=== PATIENT | female | born 1955 | race Caucasian/White ===

== ENCOUNTER 2020-01-06 18:26 | Emergency (ER) | payer BC, OTHER ==
[~2020-01-06] VITALS: Ht 160 cm; Wt 91.0 kg
[2020-01-06] MEDS ORDERED: NS IV 1000 ML 1,000 ML IV ONE ×2 (18:35→20:29)
[2020-01-06 18:45] LABS: BASOPHILS % (AUTO) 0 % (0-10); EOSINOPHILS % (AUTO) 0 % (0-10); HEMATOCRIT 39 % (35-52); HEMOGLOBIN 13.5 G/DL (11.5-16.0); LYMPHOCYTES # (AUTO) 0.7 X 10^3 (1.0-4.0); LYMPHOCYTES % (AUTO) 12 % (12-44); MEAN CORPUSCULAR HEMOGLOBIN 35 PG (25-34); MEAN CORPUSCULAR HGB CONC 35 G/DL (32-36); MEAN CORPUSCULAR VOLUME 101 FL (80-99); MEAN PLATELET VOLUME 11.1 FL (7.4-10.4); MONOCYTES # (AUTO) 0.2 X 10^3 (0.0-1.0); MONOCYTES % (AUTO) 4 % (0-12); NEUTROPHILS # (AUTO) 4.8 X 10^3 (1.8-7.8); NEUTROPHILS % (AUTO) 84 % (42-75); PLATELET COUNT 95 10^3/uL (130-400); RED CELL DISTRIBUTION WIDTH 13.5 % (10.0-14.5); WHITE BLOOD COUNT 5.7 10^3/uL (4.3-11.0)
--- NOTE | 2020-01-06 18:46 | NUR ---
NOT AT BEDSIDE PATIENT GIVES POOR HX.
[2020-01-06 18:51] LABS: INR 1.6 (0.8-1.4); PROTHROMBIN TIME PATIENT 20.1 SEC (12.2-14.7)
[2020-01-06] MEDS ORDERED: LOSA50TA63 (18:51)
[2020-01-06] MEDS ORDERED: SUMA100T3 (18:51)
[2020-01-06] MEDS ORDERED: FLUT16SP22 (18:51)
[2020-01-06] MEDS ORDERED: SERT50TA9 (18:51)
[2020-01-06] MEDS ORDERED: NADO40TA (18:51)
[2020-01-06] MEDS ORDERED: SERT25TA5 (18:51)
[2020-01-06] MEDS ORDERED: OMEP-280 (18:51)
[2020-01-06] MEDS ORDERED: ATOR20TA66 (18:51)
[2020-01-06 19:00] LABS: ALANINE AMINOTRANSFERASE 28 U/L (0-55); ALBUMIN 2.2 GM/DL (3.2-4.5); ALKALINE PHOSPHATASE 133 U/L (40-136); BILIRUBIN,TOTAL 1.6 MG/DL (0.1-1.0); BUN/CREATININE RATIO 14; CALCIUM 8.1 MG/DL (8.5-10.1); GLUCOSE 127 MG/DL (70-105); TOTAL PROTEIN 7.7 GM/DL (6.4-8.2)
--- NOTE | 2020-01-06 19:01 | Diagnostic Imaging Report ---
INDICATION: Fall with confusion and headache. TECHNIQUE: Multiple contiguous axial images were obtained through the brain and cervical spine without the use of intravenous contrast. Sagittal and coronal reformations through the cervical spine were then performed. Auto Exposure Controls were utilized during the CT exam to meet ALARA standards for radiation dose reduction. There is no prior study for comparison. FINDINGS: There were no extra-axial fluid collections. No intracranial hemorrhage. No intracranial mass or mass effect. No midline shift. The ventricles are normal in size and position. There were no focal parenchymal abnormalities in the brain. Calvarial windows show no fracture. There is opacification of the frontal sinuses, partial opacification of the ethmoid air cells, and extensive opacification of mucosal thickening of the maxillary sinuses. There is a small amount fluid in the right sphenoid sinus. CT cervical spine findings: There was no evidence of cervical spine fracture. There is mild anterolisthesis of C3 on C4 by about 2 mm. There is mild anterolisthesis of C4 on C5 by about 2 mm. There is also mild anterolisthesis of C5 on C6 by about 2 mm. There is disc space narrowing at C6-C7 with osteophyte formation. There is diffuse facet degenerative change throughout the cervical levels. IMPRESSION: CT brain shows no acute intracranial abnormality. There is diffuse sinus disease as described above. CT cervical spine shows no acute fracture. There are multilevel listheses as mentioned above which may be on degenerative basis, correlate with clinical findings. There is disc space narrowing at C6-C7 with osteophyte formation. There is diffuse facet degenerative change. Dictated by: Dictated on workstation # [id number]
--- NOTE | 2020-01-06 19:10 | Diagnostic Imaging Report ---
INDICATION: Fall with pelvic pain AP pelvis obtained at 0705 p.m. No fracture or acute bony abnormality is seen. There is mild degenerative change of both hips. The SI joints show mild degenerative change as well. There is no acute appearing finding. IMPRESSION: Mild chronic changes with no acute abnormality in the pelvis. Dictated by: Dictated on workstation # [id number]
--- NOTE | 2020-01-06 19:10 | Diagnostic Imaging Report ---
INDICATION: Fall with confusion Frontal chest obtained at 0704 p.m. There is no prior study for comparison. There is cardiomegaly. There is relatively poor inspiration. There is no focal infiltrate or pneumothorax or pleural fluid. IMPRESSION: Cardiomegaly and poor inspiration. No focal infiltrate. Dictated by: Dictated on workstation # [id number]
[2020-01-06 19:11] LABS: AMMONIA 50 UMOL/L (11-32); CHLORIDE 106 MMOL/L (98-107); POTASSIUM 3.7 MMOL/L (3.6-5.0); SODIUM 133 MMOL/L (135-145)
[2020-01-06 19:13] LABS: CARBON DIOXIDE 11 MMOL/L (21-32); CREATININE SERUM 3.95 MG/DL (0.60-1.30); GFR ESTIMATED 11
--- NOTE | 2020-01-06 19:15 | ED General ---
General Chief Complaint: Neurological Problems Stated Complaint: FALL Nursing Triage Note: PT TO [facility] BY [facility] WITH CC OF BEING FOUND DOWN ON THE FLOOR, CONFUSED, LAST KNOWN WELL WAS YESTERDAY. Nursing Sepsis Screen: Possible Severe Sepsis Risk Source of Information: Patient, EMS, Family Exam Limitations: No Limitations History of Present Illness Date Seen by Provider: Jan 06, 2020 Time Seen by Provider: 18:28 Initial Comments This 64-year-old woman presents to the emergency room via EMS after being found on the floor by her family. There is no evidence of trauma patient denies any pain at this time. She does not recall exactly what happened. She was last see n by her around 07:00. He reports she was weak and had been struggling with diarrhea for about 2 days. He had been attempting to orally hydrate her with clear liquids. She has a history of liver failure from fatty liver disease and has esophageal varices monitored by Dr. Ventura at [place]. She is afebrile at this time. Patient is conversational and answers most questions appropriately but she is disoriented to her age and the present month. She was scheduled to have surveillance endoscopy performed tomorrow. Allergies and Home Medications Allergies Coded Allergies: No Known Drug Allergies (Unverified , 01/06/20) Patient Home Medication List Home Medication List Reviewed: Yes Review of Systems Review of Systems Constitutional: see HPI EENTM: no symptoms reported Respiratory: no symptoms reported Cardiovascular: no symptoms reported Gastrointestinal: see HPI; No abdominal pain Genitourinary: no symptoms reported Musculoskeletal: no symptoms reported Skin: no symptoms reported Psychiatric/Neurological: See HPI Hematologic/Lymphatic: No Symptoms Reported Immunological/Allergic: no symptoms reported Past Ccrusqq-Fzlvuy-Tvpgcy Hx Past Med/Social Hx: Reviewed and Corrections made Patient Social History Alcohol Use: Denies Use Recreational Drug Use: No Smoking Status: Never a Smoker Recent Foreign Travel: No Contact w/Someone Who Travel: No Recent Infectious Disease Expo: No Past Medical History Surgeries: Yes (esophageal banding) Gallbladder, Hysterectomy Cardiac: Yes Hypertension Genitourinary: No Gastrointestinal: Yes Liver Disease/Jaundice, Esophageal Varices Musculoskeletal: No Endocrine: No Cancer: No Psychosocial: Yes Anxiety, Depression Physical Exam-Suspected Sepsis Physical Exam Vital Signs Vital Signs - First Documented 01/06/20 01/06/20 18:27 21:55 Temp 37.1 Pulse 109 Resp 20 B/P (MAP) 142/99 (113) Pulse Ox 94 O2 Delivery Room Air Capillary Refill : Less Than 3 Seconds Blood Pressure Mean: 113 Height, Weight, BMI Height: '" Weight: lbs. oz. kg; 35.00 BMI Method: General Appearance: No Apparent Distress, WD/WN HEENT: PERRL/EOMI, Normal ENT Inspection, Other (mucous membranes somewhat dry) Neck: Normal Inspection, Non Tender Respiratory: Lungs Clear, Normal Breath Sounds, No Accessory Muscle Use, No Respiratory Distress Cardiovascular: Regular Rate, Rhythm, No Edema, No Murmur, Normal Peripheral Pulses Gastrointestinal: Normal Bowel Sounds, Non Tender, Soft Extremity: Normal Inspection, No Pedal Edema, Other (no hip pain or tenderness) Neurologic/Psychiatric: Alert, No Motor/Sensory Deficits, Normal Mood/Affect, claim adjuster II-XII Norm as Tested, Other (mild to moderate generalized weakness with no focal deficits. Patient disoriented to age, year and month. She is otherwise conversational.) Skin: normal color, warm/dry Focused Exam Lactate Level 01/06/20 18:30: Lactic Acid Level 4.85*H 01/06/20 20:19: Lactic Acid Level 4.67*H Lactic Acid Level Progress/Results/Core Measures Suspected Sepsis Recent Fever Within 48 Hours: Yes Infection Criteria Present: Suspected New Infection New/Unexplained Altered Menta: Yes Sepsis Screen: Possible Severe Sepsis Risk SIRS Temperature: Pulse: 109 Respiratory Rate: Laboratory Tests 01/06/20 18:30: White Blood Count 5.7 Blood Pressure 142 /99 Mean: 113 01/06/20 18:30: Lactic Acid Level 4.85*H 01/06/20 20:19: Lactic Acid Level 4.67*H Laboratory Tests 01/06/20 18:30: Creatinine 3.95H, INR Comment 1.6H, Platelet Count 95L, Total Bilirubin 1.6H Results/Orders Lab Results Laboratory Tests Test 01/06/20 18:30 01/06/20 19:27 01/06/20 19:32 01/06/20 20:19 Range/Units White Blood Count 5.7 4.3-11.0 10^3/uL Red Blood Count 3.82 L 4.35-5.85 10^6/uL Hemoglobin 13.5 11.5-16.0 G/DL Hematocrit 39 35-52 % Mean Corpuscular Volume 101 H 80-99 FL Mean Corpuscular Hemoglobin 35 H 25-34 PG Mean Corpuscular Hemoglobin Concent 35 32-36 G/DL Red Cell Distribution Width 13.5 10.0-14.5 % Platelet Count 95 L 130-400 10^3/uL Mean Platelet Volume 11.1 H 7.4-10.4 FL Neutrophils (%) (Auto) 84 H 42-75 % Lymphocytes (%) (Auto) 12 12-44 % Monocytes (%) (Auto) 4 0-12 % Eosinophils (%) (Auto) 0 0-10 % Basophils (%) (Auto) 0 0-10 % Neutrophils # (Auto) 4.8 1.8-7.8 X 10^3 Lymphocytes # (Auto) 0.7 L 1.0-4.0 X 10^3 Monocytes # (Auto) 0.2 0.0-1.0 X 10^3 Eosinophils # (Auto) 0.0 0.0-0.3 10^3/uL Basophils # (Auto) 0.0 0.0-0.1 10^3/uL Prothrombin Time 20.1 H 12.2-14.7 SEC INR Comment 1.6 H 0.8-1.4 Activated Partial Thromboplast Time 30 24-35 SEC Sodium Level 133 L 135-145 MMOL/L Potassium Level 3.7 3.6-5.0 MMOL/L Chloride Level 106 98-107 MMOL/L Carbon Dioxide Level 11 L 21-32 MMOL/L Anion Gap 16 H 5-14 MMOL/L Blood Urea Nitrogen 55 H 7-18 MG/DL Creatinine 3.95 H 0.60-1.30 MG/DL Estimat Glomerular Filtration Rate 11 BUN/Creatinine Ratio 14 Glucose Level 127 H 70-105 MG/DL Lactic Acid Level 4.85 *H 4.67 *H 0.50-2.00 MMOL/L Calcium Level 8.1 L 8.5-10.1 MG/DL Corrected Calcium 9.5 8.5-10.1 MG/DL Total Bilirubin 1.6 H 0.1-1.0 MG/DL Aspartate Amino Transf (AST/SGOT) 63 H 5-34 U/L Alanine Aminotransferase (ALT/SGPT) 28 0-55 U/L Alkaline Phosphatase 133 40-136 U/L Ammonia 50 H 11-32 UMOL/L C-Reactive Protein High Sensitivity 9.29 H 0.00-0.50 MG/DL Total Protein 7.7 6.4-8.2 GM/DL Albumin 2.2 L 3.2-4.5 GM/DL Serum Alcohol < 10 <10 MG/DL Magnesium Level 1.6 1.6-2.4 MG/DL Urine Color MARNI H Urine Clarity CLOUDY Urine pH 5.0 5-9 Urine Specific [place] >=1.030 1.016-1.022 Urine Protein 3+ H NEGATIVE Urine Glucose (UA) NEGATIVE NEGATIVE Urine Ketones TRACE H NEGATIVE Urine Nitrite NEGATIVE NEGATIVE Urine Bilirubin 2+ H NEGATIVE Urine Urobilinogen 0.2 < = 1.0 MG/DL Urine Leukocyte Esterase TRACE H NEGATIVE Urine RBC (Auto) 3+ H NEGATIVE Urine RBC >100 H /HPF Urine WBC 5-10 H /HPF Urine Crystals PRESENT H /LPF Urine Amorphous Sediment MOD AUDELIA URATES H /LPF Urine Bacteria MODERATE H /HPF Urine Casts PRESENT /LPF Urine Coarse Granular Casts >50 H /LPF Urine Mucus NEGATIVE /LPF Urine Culture Indicated CULTURE PENDING Micro Results Microbiology 01/06/20 Influenza Types A,B Antigen (BRENNEN) - Final, Complete My Orders Orders - HESHAM YEBOAH MD Cbc With Automated Diff (01/06/20 18:33) Comprehensive Metabolic Panel (01/06/20 18:33) Blood Culture (01/06/20 18:33) Sputum Culture (01/06/20 18:33) Urinalysis (01/06/20 18:33) Urine Culture (01/06/20 18:33) Protime With Inr (01/06/20 18:33) Partial Thromboplastin Time (01/06/20 18:33) Chest 1 View, Ap/Pa Only (01/06/20 18:33) Ed Iv/Invasive Line Start (01/06/20 18:33) Ed Iv/Invasive Line Start (01/06/20 18:33) Vital Signs Adult Sepsis Patie Q15M (01/06/20 18:33) O2 (01/06/20 18:33) Remove Rings In Anticipation O (01/06/20 18:33) Lactic Acid Analyzer (01/06/20 18:33) Alcohol (01/06/20 18:33) Ammonia (01/06/20 18:33) Hs C Reactive Protein (01/06/20 18:33) Influenza A And B Antigens (01/06/20 18:33) Ct Head/Cervical Spine Wo (01/06/20 18:33) Pelvis (01/06/20 18:33) Ns Iv 1000 Ml (Sodium Chloride 0.9%) (01/06/20 18:35) Magnesium (01/06/20 19:27) Gallegos Cath (01/06/20 19:49) Ceftriaxone For Iv Use (Rocephin For I (01/06/20 20:15) Ns Iv 1000 Ml (Sodium Chloride 0.9%) (01/06/20 20:29) Sodium Bicarbonate 8.4% Vial (Sodium Bic (01/06/20 21:00) Medications Given in ED Current Medications Medications Dose Ordered Sig/Olivia Route Start Time Stop Time Status Last Admin Dose Admin Ceftriaxone Sodium 1000 mg/ Sterile Water 10 ml @ 200 mls/hr ONCE ONCE IV 01/06/20 20:15 01/06/20 20:17 DC 01/06/20 20:32 200 MLS/HR Sodium Bicarbonate 50 meq ONCE ONCE IV 01/06/20 21:00 01/06/20 21:01 DC 01/06/20 21:11 50 MEQ Sodium Chloride 1,000 ml @ 0 mls/hr Q0M ONCE IV 01/06/20 20:29 01/06/20 20:30 DC 01/06/20 20:34 0 MLS/HR Vital Signs/I&O 01/06/20 21:55 Temp 37.1 Pulse 80 Resp 20 B/P (MAP) 106/78 (113) Pulse Ox 97 O2 Delivery Room Air 01/07/20 00:00 Intake Total 2010 ml Balance 2010 ml Capillary Refill : Less Than 3 Seconds Blood Pressure Mean: 113 Progress Note : Time: 20:53 Progress Note Patient was found to have significant renal failure with a creatinine of 3.95. We do not have baseline creatinine as this is her first visit to this hospital. Her reports no prior history of renal problems. She does have a history of liver failure and her ammonia level is elevated today. She has received 1 L of IV fluids and is receiving a second. She has received Rocephin for suspected urinary tract infection and sinus disease noted on CT of the head. Given her significant liver and renal issues, I feel this patient would be best served at a tertiary care facility with nephrology and GI services. Patient requests transfer to one of the [facility]. I contacted [facility] since her suture gauger is Dr. Ventura but they are on medical bed diversion. They've had positive experience with [facility] in the past and requests to go there. Transfer has been graciously accepted by Dr. Sofia. He requested a dose of sodium bicarbonate which has been ordered. Diagnostic Imaging Diagonstic Imaging: CT Plain Films/CT/US/NM/MRI: c-spine, head Comments CT head and cervical spine viewed by me and report reviewed. See report below: NAME: CASA PATTON MED REC#: [id number] PT STATUS: REG ER : 1955 PHYSICIAN: HESHAM YEBOAH MD ADMIT DATE: 01/06/20/ER Draft Date of Exam:01/06/20 CT HEAD/CERVICAL SPINE WO INDICATION: Fall with confusion and headache. TECHNIQUE: Multiple contiguous axial images were obtained through the brain and cervical spine without the use of intravenous contrast. Sagittal and coronal reformations through the cervical spine were then performed. Auto Exposure Controls were utilized during the CT exam to meet ALARA standards for radiation dose reduction. There is no prior study for comparison. FINDINGS: There were no extra-axial fluid collections. No intracranial hemorrhage. No intracranial mass or mass effect. No midline shift. The ventricles are normal in size and position. There were no focal parenchymal abnormalities in the brain. Calvarial windows show no fracture. There is opacification of the frontal sinuses, partial opacification of the ethmoid air cells, and extensive opacification of mucosal thickening of the maxillary sinuses. There is a small amount fluid in the right sphenoid sinus. CT cervical spine findings: There was no evidence of cervical spine fracture. There is mild anterolisthesis of C3 on C4 by about 2 mm. There is mild anterolisthesis of C4 on C5 by about 2 mm. There is also mild anterolisthesis of C5 on C6 by about 2 mm. There is disc space narrowing at C6-C7 with osteophyte formation. There is diffuse facet degenerative change throughout the cervical levels. IMPRESSION: CT brain shows no acute intracranial abnormality. There is diffuse sinus disease as described above. CT cervical spine shows no acute fracture. There are multilevel listheses as mentioned above which may be on degenerative basis, correlate with clinical findings. There is disc space narrowing at C6-C7 with osteophyte formation. There is diffuse facet degenerative change. Dictated on workstation # [id number] Dict: 01/06/201852 Trans: 01/06/201899 [id number] Interpreted by: BRINA OVALLES MD Diagonstic Imaging: Xray Plain Films/CT/US/NM/MRI: chest Comments Chest x-ray viewed by me and report reviewed. See report below: NAME: CASA PATTON [facility] REC#: [id number] PT STATUS: REG ER : 1955 PHYSICIAN: HESHAM YEBOAH MD ADMIT DATE: 01/06/20/ER Draft Date of Exam:01/06/20 CHEST 1 VIEW, AP/PA ONLY INDICATION: Fall with confusion Frontal chest obtained at 0704 p.m. There is no prior study for comparison. There is cardiomegaly. There is relatively poor inspiration. There is no focal infiltrate or pneumothorax or pleural fluid. IMPRESSION: Cardiomegaly and poor inspiration. No focal infiltrate. Dictated on workstation # [id number] Dict: 01/06/201906 Trans: 01/06/201909 [facility] [id number] Interpreted by: BRINA OVALLES MD Diagonstic Imaging: Xray Plain Films/CT/US/NM/MRI: pelvis Comments Pelvis x-ray viewed by me and report reviewed. See report below: NAME: CASA PATTON [facility] REC#: [id number] PT STATUS: REG ER : 1955 PHYSICIAN: HESHAM YEBOAH MD ADMIT DATE: 01/06/20/ER Signed Date of Exam:01/06/20 PELVIS INDICATION: Fall with pelvic pain AP pelvis obtained at 0705 p.m. No fracture or acute bony abnormality is seen. There is mild degenerative change of both hips. The SI joints show mild degenerative change as well. There is no acute appearing finding. IMPRESSION: Mild chronic changes with no acute abnormality in the pelvis. Dictated by: Dictated on workstation # [id number] Dict: 01/06/201906 Trans: 01/06/201908 [facility] [id number] Interpreted by: BRINA OVALLES MD Electronically signed by: BRINA OVALLES MD 01/06/201908 Departure Impression Primary Impression: Acute kidney failure Qualified Codes: N17.9 - Acute kidney failure, unspecified Additional Impressions: Chronic liver failure Qualified Codes: K72.10 - Chronic hepatic failure without coma Hyperammonemia Sinusitis Qualified Codes: J32.9 - Chronic sinusitis, unspecified Disposition: XFER SHT-TRM HOSP Condition: Stable Transfer Transfer Reason: Exceeds level of care Time Spoke to Accepting Phy: 20:30 Transfer Progress Notes Patient accepted by Dr. Sofia at [facility]. Transfer Time: 21:46 Transfer Facility: [facility] Method of Transfer: EMS Departure-Patient Inst. Referrals: NO,LOCAL PHYSICIAN (PCP/Family) Primary Care Physician HESHAM YEBOAH MD Jan 06, 2020 19:14
[2020-01-06 19:42] LABS: CLARITY,URINE CLOUDY; COLOR,URINE AMBER; GLUCOSE, URINE (UA) NEGATIVE (NEGATIVE); KETONES,URINE TRACE (NEGATIVE); LEUKOCYTE ESTERASE ,URINE TRACE (NEGATIVE); NITRITE,URINE NEGATIVE (NEGATIVE); PROTEIN,URINE 3+ (NEGATIVE)
[2020-01-06 19:56] LABS: AMORPHOUS SEDIMENT,UR MOD AMOR URATES /LPF; BACTERIA,URINE MODERATE /HPF; BILIRUBIN,URINE 2+ (NEGATIVE); RBC,URINE >100 /HPF
[2020-01-06] MEDS ORDERED: cefTRIAXone FOR IV USE 1,000 MG in WATER (STERILE) FOR INJECTION 10 ML IV ONE (20:15)
[2020-01-06] MEDS ORDERED: SODIUM BICARB 8.4% 50 MEQ/50 ML VIAL IV ONE (21:00)
--- NOTE | 2020-01-06 21:37 | NUR ---
Report called to JANIYA Ahmadi at [facility].
[2020-01-06 21:55] VITALS: BP 106/78
== END 2020-01-06 22:02 | disposition short-term general hospital (02) ==
LOC: ER 18:28
DX: N17.9 Acute kidney failure, unspecified (principal); K72.10 Chronic hepatic failure without coma; E72.20 Disorder of urea cycle metabolism, unspecified; J32.9 Chronic sinusitis, unspecified; W19.XXXA Unspecified fall, initial encounter
CPT/HCPCS: 36415; 51702; 70450; 71045; 72125; 72170; 80053; 80320; 81000; 82140; 83605; 83735; 85025; 85610; 85730; 86141; 87040; 87077; 87088; 87804

== ENCOUNTER 2020-03-08 18:53 | Emergency (ER) | payer BC ==
[~2020-03-08] VITALS: Ht 170 cm; Wt 108.0 kg
[2020-03-08 18:53] VITALS: BP 123/65
[~2020-03-08 18:53] MED LIST: ATOR20TA66; FLUT16SP22; LOSA50TA63; NADO40TA; OMEP20CA18; SERT25TA5; SERT50TA9; SUMA100T3
[2020-03-08 19:11] LABS: BASOPHILS % (AUTO) 0 % (0-10); EOSINOPHILS # (AUTO) 0.1 10^3/uL (0.0-0.3); EOSINOPHILS % (AUTO) 1 % (0-10); HEMATOCRIT 29 % (35-52); HEMOGLOBIN 10.1 G/DL (11.5-16.0); LYMPHOCYTES # (AUTO) 1.7 X 10^3 (1.0-4.0); LYMPHOCYTES % (AUTO) 16 % (12-44); MEAN CORPUSCULAR HEMOGLOBIN 36 PG (25-34); MEAN CORPUSCULAR HGB CONC 35 G/DL (32-36); MEAN CORPUSCULAR VOLUME 104 FL (80-99); MEAN PLATELET VOLUME 11.1 FL (7.4-10.4); MONOCYTES # (AUTO) 0.7 X 10^3 (0.0-1.0); MONOCYTES % (AUTO) 7 % (0-12); NEUTROPHILS # (AUTO) 8.4 X 10^3 (1.8-7.8); NEUTROPHILS % (AUTO) 77 % (42-75); PLATELET COUNT 142 10^3/uL (130-400); RED CELL DISTRIBUTION WIDTH 25.9 % (10.0-14.5); WHITE BLOOD COUNT 10.9 10^3/uL (4.3-11.0)
[2020-03-08 19:23] LABS: ALBUMIN 3.5 GM/DL (3.2-4.5)
[2020-03-08 19:24] LABS: CALCIUM 10.1 MG/DL (8.5-10.1)
[2020-03-08 19:25] LABS: INR 1.5 (0.8-1.4)
[2020-03-08 19:26] LABS: TOTAL PROTEIN 8.2 GM/DL (6.4-8.2)
[2020-03-08 19:27] LABS: BILIRUBIN,TOTAL 4.4 MG/DL (0.1-1.0); POTASSIUM 4.1 MMOL/L (3.6-5.0)
[2020-03-08 19:29] LABS: CREATININE SERUM 5.88 MG/DL (0.60-1.30)
--- NOTE | 2020-03-08 19:44 | ED General ---
General Chief Complaint: Altered Mental Status Stated Complaint: LETHARGY Nursing Triage Note: Pt to ED via EMS. Pt unresponsive to pain at time of arrival. Family reports pt has had increased lethargy. EMS reports pt's last dialysis was Sunday, however paperwork with pt reports pt receives dailysis on Sunday, , and Sunday. Nursing Sepsis Screen: No Definite Risk Source of Information: EMS, Old Records, Spouse (VIA PHONE) Exam Limitations: Other (PT IS OBTUNDED) History of Present Illness Date Seen by Provider: Mar 08, 2020 Time Seen by Provider: 18:52 Initial Comments PT ARRIVES VIA EMS FROM HOME PT HAS HAD DECREASED RESPONSIVENESS / INCREASED LETHARGY SINCE YESTERDAY--PT IS NOT RESPONDING TO ANYTHING IN THE LAST HOUR, PT HAS BEEN HAVING SNORING RESPIRATIONS, SO FAMILY CALLED EMS FAMILY ( AND SISTER ) REPORTED TO EMS THAT PT WAS "HAVING END OF LIFE ISSUES" FAMILY REPORTED TO EMS THAT PT IS TO BE DNR/DNI AND "NO HEROIC MEASURES AND NOTHING INVASIVE BE DONE". PT DOES NOT HAVE ANY WRITTEN ADVANCE DIRECTIVES, AND IS NOT ON HOSPICE AT THIS TIME I SPOKE WITH ON THE PHONE ( HE AND PT'S SISTER HAVE STAYED AT HOME, DUE TO CURRENT RESTRICTIONS DUE TO COVID-19 PANDEMIC ) HE STATES THAT PT BECAME ILL ON JANUARY 05, WAS BROUGHT HERE AND TRANSFERRED TO [facility]. HE STATES THAT PT WAS "PERFECTLY HEALTHY" AND "NO PROBLEMS WHATSOEVER" UNTIL THAT DAY ( HOWEVER HE LATER STATES THAT SHE WAS DIAGNOSED WITH A "FATTY LIVER" 5-6 YEARS AGO, BUT "DIDN'T HAVE ANY PROBLEMS"-HOWEVER ON REVIEW OF OLD RECORD, PT HAS HX OF LIVER FAILURE AND HAS HAD ESOPHAGEAL VARICES WITH BANDING IN THE PAST ) HE STATES THAT SHE WAS DIAGNOSED WITH "SEPSIS" AND HAD UTI AND SINUS INFECTION. PT DEVELOPED RENAL FAILURE AND LIVER FAILURE, AND WAS STARTED ON DIALYSIS. HE STATES THAT PT NEVER REQUIRED A VENTILATOR. SHE DID HAVE PARACENTESIS DUE TO ASCITES THAT DEVELOPED. SHE WAS TRANSFERRED TO [facility], AND HAD BEEN THERE FOR 5-6 WEEKS, AND CAME BACK HOME SUNDAY NIGHT. SHE LAST RECEIVED DIALYSIS ON SUNDAY MORNING, AND IS TO START DIALYSIS LOCALLY WITH [facility] TOMORROW FOR [id number] SCHEDULE. SHE IS ALSO SUPPOSED TO BE GETTING HOME HEALTH PT IS NOT ON HOME O2 STATES THAT "SHE WAS FINE ON SUNDAY, BUT HAS BEEN [place] SIN[place]" STATES THAT SHE HAD THESE SAME SYMPTOMS WHILE SHE WAS AT [place] AND WAS DUE TO ELEVATED AMMONIA LEVEL AND IT WAS TREATED AND SHE GOT BETTER. HE STATES THAT NO ONE HAD SEEN THE PT SINCE DECEMBER, DUE TO THE STRICT NO VISITOR POLICIES THAT ARE CURRENTLY IN PLACE DUE TO THE COVID-19 PANDEMIC. NO ONE ELSE IN THE FAMILY HAS BEEN ILL. PCP: DR. IRBY WITH [facility] Allergies and Home Medications Allergies Coded Allergies: No Known Drug Allergies (Unverified , 01/06/20) Patient Home Medication List Home Medication List Reviewed: Yes Review of Systems Review of Systems Constitutional: other (UNABLE TO ANSWER--PT IS OBTUNDED) Past [id number] Hx Past Med/Social Hx: Reviewed and Corrections made Patient Social History Alcohol Use: Denies Use Recreational Drug Use: No Smoking Status: Never a Smoker 2nd Hand Smoke Exposure: No Recent Foreign Travel: No Contact w/Someone Who Travel: No Recent Infectious Disease Expo: No Past Medical History Surgeries: Yes (ESOPHAGEAL BANDING;PARACENTESIS;R CENTRAL DIALYSIS CATHETER;) Dialysis, Gallbladder, Hysterectomy Respiratory: No Cardiac: Yes High Cholesterol, Hypertension Neurological: No EMPLOYMENT AND CLAIMS AIDE History: Hysterectomy Genitourinary: Yes (ESRD ON DIALYSIS SINCE 12/2019) Renal Failure, Dialysis Gastrointestinal: Yes (ESLF DX 12/2019;HASSAN;BANDING/ESOPHAGEAL VARICES;ASCITES/PARACENTESIS;ERINN) Liver Disease/Jaundice, Esophageal Varices, Cirrhosis, Gall Bladder Disease Musculoskeletal: No Endocrine: Yes Diabetes, Non-Insulin dep Cancer: No Psychosocial: Yes Anxiety, Depression Physical Exam Vital Signs Vital Signs - First Documented 03/08/20 18:53 Temp 36.4 Pulse 89 Resp 20 B/P (MAP) 123/65 (84) Pulse Ox 92 O2 Delivery Room Air Capillary Refill : Less Than 3 Seconds Height, Weight, BMI Height: '" Weight: lbs. oz. kg; 37.00 BMI Method: General Appearance: Other (PT ARRIVES WITH EYES OPEN, BUT HAS BLANK STARE, IS NOT TRACKING AND IS OTHERWISE COMPLETELY UNRESPONSIVE/OBTUNDED. MOUTH OPEN/MOUTH BREATHING, BUT RESPIRATIONS ARE EVEN AND UNLABORED. PT IS INCONTINENT OF LIQUID STOOL ON ARRIVAL. ) HEENT: PERRL/EOMI, Scleral Icterus (L), Scleral Icterus (R), Other (ORAL MUCOSA IS DRY) Neck: JVD (MILD) Respiratory: Normal Breath Sounds, No Accessory Muscle Use, No Respiratory Distress, Other (RIGHT CHEST WITH CENTRAL LINE FOR DIALYSIS) Cardiovascular: Regular Rate, Rhythm, No Murmur Gastrointestinal: Soft, Other (ROTUND BUT SOFT) Extremity: No Pedal Edema Neurologic/Psychiatric: Other (MENTATION ABOVE. ) Skin: Warm/Dry, Ecchymosis (EXTENSIVE BRUISING TO ABDOMEN), Jaundice, Petechia (EXTENSIVE PETECHIAE TO ENTIRE BODY, BUT IS MOST PRONOUNCED ON ABDOMEN) Focused Exam Lactate Level 03/08/20 19:00: Lactic Acid Level 1.76 Lactic Acid Level Progress/Results/Core Measures Suspected Sepsis Recent Fever Within 48 Hours: No Infection Criteria Present: None New/Unexplained Altered Menta: No Sepsis Screen: No Definite Risk SIRS Temperature: Pulse: 89 Respiratory Rate: 20 Laboratory Tests 03/08/20 19:00: White Blood Count 10.9 Blood Pressure 123 /65 Mean: 84 03/08/20 19:00: Lactic Acid Level 1.76 Laboratory Tests 03/08/20 19:00: Creatinine 5.88H, INR Comment 1.5H, Platelet Count 142, Total Bilirubin 4.4H Results/Orders Lab Results My Orders Medications Given in ED Vital Signs/I&O Capillary Refill : Less Than 3 Seconds Blood Pressure Mean: 84 Point of Care Testing Finger Stick Blood Glucose: 160 Blood Glucose Action Taken: REAGAN NOTIFIED Progress Note : Progress Note FAMILY IS ADAMANT THAT PT IS DNR/DNI WITH NO HEROIC MEASURES BE DONE AND "NOTHING INVASIVE" BE DONE FAMILY DOES WANT PT TO CONTINUE DIALYSIS, AND AMMONIA LEVEL TREATED FAMILY IS AGREEABLE TO TRANSFER TO [facility] VITALS REMAINED STABLE O2 SATS UP TO 96% ON 2L/NC NG TUBE PLACED TO GIVE LACTULOSE, AND RECTAL TUBE PLACED, PT ALREADY IS INCONTINENT OF LIQUID STOOL, PRIOR TO GIVING LACTULOSE. ECG Initial ECG Impression Date: Mar 08, 2020 Initial ECG Impression Time: 19:02 Initial ECG Rate: 88 Initial ECG Rhythm: Normal Sinus Diagnostic Imaging Comments CXR--PER RADIOLOGIST REPORT AT 2018 FINDINGS: Right IJ dialysis catheter has been placed with the tip projecting over the low SVC. Heart size is enlarged. Vasculature is increased from prior study. Asymmetric increased parenchymal density to the right lung is noted. This may very well reflect asymmetric edema and/or effusion. Superimposed infiltrate, however, suggested at least at the left lung base. IMPRESSION: 1. Cardiac enlargement with presence of pulmonary vascular congestion. 2. Asymmetric opacity at the right hemithorax likely underlying effusion with asymmetric edema and/or infiltrate. Additional infiltrate, however, is suggested at the left lung base. Follow-up imaging recommended. CT HEAD--PER RADIOLOGIST REPORT AT 2018 FINDINGS: The ventricles and sulci appear generally stable. No abnormal areas of decreased attenuation to suggest edema. No midline shift or mass effect. Basal ganglia calcification. No intracranial hemorrhage. No hyperdense MCA sign. Basilar cisterns are maintained. There remains partial opacification of the bilateral maxillary sinuses, left greater than right. Otherwise, there has been improvement and clearing of the previously noted sinus opacification. IMPRESSION: 1. Negative for acute intracranial abnormality. 2. Residual inflammatory sinus disease involving bilateral maxillary sinuses but has improved fairly considerably from previous study. CXR--POST NG TUBE PLACEMENT--PER RADIOLOGIST REPORT AT 2157 IMPRESSION: 1. Interval placement gastric tube tip projecting at the level of the body of the stomach. Reviewed: Reviewed by Me Departure Communication (Admissions) Family Conversation 2046--SPOKE WITH PT'S AGAIN, AND UPDATE GIVEN, AND IS AGREEABLE TO TRANSFER. ADVISED OF THE SEVERITY OF PT'S CONDITION, AND STRONG POSSIBILITY THAT SHE MAY NOT SURVIVE THIS, AND HE UNDERSTANDS. HE STATES THAT HOSPICE HAD BEEN DISCUSSED WITH HER PREVIOUS HOSPITALIZATION, BUT THAT ( ALONG WITH SIGNING ADVANCE DIRECTIVE PAPERS ) HAD NOT BEEN DONE YET, DUE TO THE "NO VISITOR POLICY" 2026--[facility] 2029--SPOKE WITH DR. LEW, HE ADVISES THAT PT IS DNR/DNI, DOES NOT NEED ICU, ADVISES ADMIT TO HOSPITALIST 2047--SPOKE WITH DR. LOPEZ, HOSPITALIST, ACCEPTS PT FOR ADMIT. NO ADDITIONAL RECOMMENDATIONS AT THIS TIME. Impression Primary Impression: Altered mental status Additional Impressions: Hepatic encephalopathy ELEVATED AMMONIA LEVEL Liver failure with hepatic coma ESRD on dialysis Fluid overload Electrolyte imbalance Hyponatremia Elevated troponin Low phosphate levels UTI (urinary tract infection) Disposition: 03 XFER SNF Condition: Stable/Unchanged Transfer Transfer Reason: Exceeds level of care Transfer Facility: [facility] Method of Transfer: EMS Departure-Patient Inst. Referrals: NO,LOCAL PHYSICIAN (PCP/Family) Primary Care Physician NORBERT KIRK DO Mar 08, 2020 19:44
[2020-03-08 19:45] LABS: BILIRUBIN,URINE 2+ (NEGATIVE); CLARITY,URINE CLOUDY; COLOR,URINE DARK YELLOW; GLUCOSE, URINE (UA) TRACE (NEGATIVE); KETONES,URINE TRACE (NEGATIVE); LEUKOCYTE ESTERASE ,URINE 2+ (NEGATIVE); NITRITE,URINE POSITIVE (NEGATIVE); PH,URINE 5.5 (5-9); PROTEIN,URINE 3+ (NEGATIVE)
[2020-03-08] MEDS ORDERED: LACTULOSE SYRUP 10GM/15ML (ENULOSE) 30ML UDC PO ONE (19:45)
[2020-03-08 19:50] LABS: BACTERIA,URINE MODERATE /HPF; HYALINE CASTS, URINE RARE /LPF; RBC,URINE RARE /HPF; WBC,URINE 50-100 /HPF; YEAST,URINE FEW /HPF
--- NOTE | 2020-03-08 20:09 | Diagnostic Imaging Report ---
INDICATION: Altered mental status, not responsive. TECHNIQUE: Single view chest 8:01 PM. CORRELATION STUDY: 01/06/2020 FINDINGS: Right IJ dialysis catheter has been placed with the tip projecting over the low SVC. Heart size is enlarged. Vasculature is increased from prior study. Asymmetric increased parenchymal density to the right lung is noted. This may very well reflect asymmetric edema and/or effusion. Superimposed infiltrate, however, suggested at least at the left lung base. IMPRESSION: 1. Cardiac enlargement with presence of pulmonary vascular congestion. 2. Asymmetric opacity at the right hemithorax likely underlying effusion with asymmetric edema and/or infiltrate. Additional infiltrate, however, is suggested at the left lung base. Follow-up imaging recommended. Dictated by: Dictated on workstation # [id number]
--- NOTE | 2020-03-08 20:13 | Diagnostic Imaging Report ---
PROCEDURE: CT head without contrast. TECHNIQUE: Multiple contiguous axial images were obtained through the brain without the use of intravenous contrast. Auto Exposure Controls were utilized during the CT exam to meet ALARA standards for radiation dose reduction. INDICATION: Altered mental status, not responsive. CORRELATION STUDY: 01/06/2020 FINDINGS: The ventricles and sulci appear generally stable. No abnormal areas of decreased attenuation to suggest edema. No midline shift or mass effect. Basal ganglia calcification. No intracranial hemorrhage. No hyperdense MCA sign. Basilar cisterns are maintained. There remains partial opacification of the bilateral maxillary sinuses, left greater than right. Otherwise, there has been improvement and clearing of the previously noted sinus opacification. IMPRESSION: 1. Negative for acute intracranial abnormality. 2. Residual inflammatory sinus disease involving bilateral maxillary sinuses but has improved fairly considerably from previous study. Dictated by: Dictated on workstation # [id number]
[2020-03-08] MEDS ORDERED: CEFEPIME INJECTION 2,000 MG in WATER (STERILE) FOR INJECTION 10 ML IV ONE (20:30)
[2020-03-08] MEDS ORDERED: WATER (STERILE) FOR INJECTION 20 ML ONE (21:12)
[2020-03-08] MEDS ORDERED: CEFEPIME 2 GM (MAXIPIME) VIAL ONE (21:12)
[2020-03-08] MEDS ORDERED: NS (IVPB) 250 ML ONE (21:16)
--- NOTE | 2020-03-08 21:20 | Diagnostic Imaging Report ---
INDICATION: Tube placement. TECHNIQUE: Single view chest 9:01 PM. CORRELATION STUDY: 03/08/2020 FINDINGS: Since the prior study, gastric tube has been placed, the tip particularly in the left upper quadrant likely in the region of the body of stomach. Right IJ dialysis catheter unchanged, the tip over the SVC. Heart size enlarged and there is the presence of vascular congestion. Likely presence of bilateral pleural effusions. Superimposed areas of infiltrate, particularly the left lung base is suspected. IMPRESSION: 1. Interval placement gastric tube tip projecting at the level of the body of the stomach. Dictated by: Dictated on workstation # [id number]
[2020-03-08 21:49] LABS: ABG BASE EXCESS -2.9 MMOL/L (-2.5-2.5); ABG OXYGEN SATURATION 92 % (94-100); ABG PCO2 27 MMHG (35-45); ABG PH 7.49 (7.37-7.43); ABG PO2 63 MMHG (79-93); ABG TCO2 20.9 MMOL/L (21.0-31.0); ALLENS TEST YES-POS; INSPIRED O2 NOT INDICATED; PATIENT TEMP 36.7; VENTILATOR NO
--- OUTSIDE RECORDS SUMMARY | 2020-03-09 10:30 | XMS REPORT | Continuity of Care Document ---
Author Organization Unknown Address Unknown Phone Unavailable Allergies Active Description Code Type Severity Reaction Onset Reported/Identified Relationship to Patient Clinical Status Yes No Known Drug Allergies [id number] Drug Allergy Unknown N/A 01/06/2020 Medications There is no data. Problems Date Dx Coded Attending Type Code Diagnosis Diagnosed By 01/06/2020 EDILIA HARRELL, HESHAM Combs Ot E72.20 DISORDER OF UREA CYCLE METABOLISM, UNSPE 01/06/2020 EDILIA HARRELL, HESHAM Combs Ot J32.9 CHRONIC SINUSITIS, UNSPECIFIED 01/06/2020 HESHAM YEBOAH MD Ot K72.10 CHRONIC HEPATIC FAILURE WITHOUT COMA 01/06/2020 HESHAM YEBOAH MD Ot N17.9 ACUTE KIDNEY FAILURE, UNSPECIFIED 01/06/2020 EDILIA HARRELL, HESHAM Combs Ot R41.0 DISORIENTATION, UNSPECIFIED 01/06/2020 EDILIA HARRELL, HESHAM Combs Ot W19.XXXA UNSPECIFIED FALL, INITIAL ENCOUNTER 01/11/2020 EDILIA HARRELL, HESHAM Combs Ot E72.20 DISORDER OF UREA CYCLE METABOLISM, UNSPE 01/11/2020 EDILIA HARRELL, HEHSAM Combs Ot J32.9 CHRONIC SINUSITIS, UNSPECIFIED 01/11/2020 HESHAM YEBOAH MD Ot K72.10 CHRONIC HEPATIC FAILURE WITHOUT COMA 01/11/2020 EDILIA HARRELL, HESHAM Combs Ot N17.9 ACUTE KIDNEY FAILURE, UNSPECIFIED 01/11/2020 HESHAM YEBOAH MD Ot R41.0 DISORIENTATION, UNSPECIFIED 01/11/2020 HESHAM YEBOAH MD Ot W19.XXXA UNSPECIFIED FALL, INITIAL ENCOUNTER 01/15/2020 HESHAM YEBOAH MD Ot E72.20 DISORDER OF UREA CYCLE METABOLISM, UNSPE 01/15/2020 HESHAM YEBOAH MD Ot J32.9 CHRONIC SINUSITIS, UNSPECIFIED 01/15/2020 EDILIA HARRELL, HESHAM Combs Ot K72.10 CHRONIC HEPATIC FAILURE WITHOUT COMA 01/15/2020 EDILIA HARRELL, HESHAM Combs Ot N17.9 ACUTE KIDNEY FAILURE, UNSPECIFIED 01/15/2020 HESHAM YEBOAH MD, Ot R41.0 DISORIENTATION, UNSPECIFIED 01/15/2020 HESHAM YEBOAH MD, Ot W19.XXXA UNSPECIFIED FALL, INITIAL ENCOUNTER Procedures There is no data. Results Test Result Range Complete blood count (CBC) with automate d white blood cell (WBC) differential - 01/06/20 18:30 Blood leukocytes automated count (number/volume) 5.7 10*3/uL 4.3-11.0 Blood erythrocytes automated count (number/volume) 3.82 10*6/uL 4.35-5.85 Venous blood hemoglobin measurement (mass/volume) 13.5 g/dL 11.5-16.0 Blood hematocrit (volume fraction) 39 % 35-52 Automated erythrocyte mean corpuscular volume 101 [foz_us] 80-99 Automated erythrocyte mean corpuscular h emoglobin (mass per erythrocyte) 35 pg 25-34 Automated erythrocyte mean corpuscular h emoglobin concentration measurement (mass/volume) 35 g/dL 32-36 Automated erythrocyte distribution width ratio 13. 5 % 10.0- 14.5 Automated blood platelet count (count/volume) 95 1 0*3/uL 130-400 Automated blood platelet mean volume measurement 11.1 [foz_us] 7.4-10.4 Automated blood neutrophils/100 leukocytes 84 % 42-75 Automated blood lymphocytes/100 leukocytes 12 % 12-44 Blood monocytes/100 leukocytes 4 % 0-12 Automated blood eosinophils/100 leukocytes 0 % 0-10 Automated blood basophils/100 leukocytes 0 % 0-10 Blood neutrophils automated count (number/volume) 4.8 10*3 1.8-7.8 Blood lymphocytes automated count (number/volume) 0.7 10*3 1.0-4.0 Blood monocytes automated count (number/volume) 0. 2 10*3 0.0-1.0 Automated eosinophil count 0.0 10*3/uL 0 .0-0.3 Automated blood basophil count (count/volume) 0.0 10*3/uL 0.0-0.1 PT panel in platelet poor plasma by coag ulation assay - 01/06/20 18:30 Prothrombin time (PT) in platelet poor plasma by coagu lation assay 20.1 s 12.2-14.7 INR in platelet poor plasma or blood by coagulation as say 1.6 0.8-1.4 Activated partial thromboplastin time (a PTT) in platelet poor plasma bycoagulation assay - 01/06/20 18:30 Activated partial thromboplastin time (a PTT) in platelet poor plasma bycoagulation assay 30 s 24-35 Comprehensive metabolic panel - 01/06/20 18:30 Serum or plasma sodium measurement (moles/volume) 133 mmol/L 135-145 Serum or plasma potassium measurement (moles/volume) 3.7 mmol/L 3.6-5.0 Serum or plasma chloride measurement (moles/volume) 106 mmol/L 98-107 Carbon dioxide 11 mmol/L 21-32 Serum or plasma anion gap determination (moles/volume) 16 mmol/L 5-14 Serum or plasma urea nitrogen measurement (mass/volume ) 55 mg/dL 7-18 Serum or plasma creatinine measurement (mass/volume) 3.95 mg/dL 0.60-1.30 Serum or plasma urea nitrogen/creatinine mass ratio 14 NRG Serum or plasma creatinine measurement w ith calculation of estimated glomerular filtration rate 11 NRG Serum or plasma glucose measurement (mass/volume) 127 mg/dL 70-105 Serum or plasma calcium measurement (mass/volume) 8.1 mg/dL 8.5-10.1 Serum or plasma total bilirubin measurement (mass/volu me) 1.6 mg/dL 0.1-1.0 Serum or plasma alkaline phosphatase chanelle surement (enzymatic activity/volume) 133 U/L 40-136 Serum or plasma aspartate aminotransfera se measurement (enzymatic activity/volume) 63 U/L 5-34 Serum or plasma alanine aminotransferase measurement (enzymatic activity/volume) 28 U/L 0-55 Serum or plasma protein measurement (mass/volume) 7.7 g/dL 6.4-8.2 Serum or plasma albumin measurement (mass/volume) 2.2 g/dL 3.2-4.5 CALCIUM CORRECTED 9.5 mg/dL 8.5-10.1 Ammonia - 01/06/20 18:30 Ammonia 50 umol/L 11-32 Blood lactic acid measurement (moles/vol ume) - 01/06/20 18:30 Blood lactic acid measurement (moles/volume) 4.85 mmol/L 0.50-2.00 Serum or plasma C reactive protein measu rement (mass/volume) - 01/06/20 18:30 Serum or plasma C reactive protein measurement (mass/v olume) 9.29 mg/dL 0.00-0.50 Influenza virus A and B antigen detectio n - 01/06/20 18:30 FLU RESULT NEGATIVE FOR INFLUENZA A AND B ANTIGENS BY IA NRG Serum or plasma ethanol measurement (mas s/volume) - 01/06/20 18:30 Serum or plasma ethanol measurement (mass/volume) < mg/dL <10 Bacterial blood culture - 01/06/20 18:30 FREE TEXT EXTERNAL SUSCEPTIBILITY REPORTED 01/10 15 :20 NRG QUANTITY OF GROWTH . NRG Bacterial blood culture SEE COMMEN NRG FREE TEXT ENTRY 2 PRELIM RAPID ID AT [facility] 01/07/20 1 0:45 NRG FREE TEXT ENTRY 3 RML CONFIRMED ID 01/08/20 14:05 NRG Bacterial blood culture - 01/06/20 19:09 FREE TEXT EXTERNAL SEE OTHER CULTURE FOR SUSCEPTIB ILITY NRG QUANTITY OF GROWTH . NRG Bacterial blood culture SEE COMMEN NR FREE TEXT ENTRY 2 PRELIM RAPID ID AT [facility] 01/08/20 8 :00 NRG FREE TEXT ENTRY 3 RML CONFIRMED ID 01/08 AT 14: 05 NRG Magnesium - 01/06/20 19:27 Magnesium 1.6 mg/dL 1.6-2.4 Complete urinalysis with reflex to cultu re - 01/06/20 19:32 Urine color determination MARNI NRG Urine clarity determination CLOUDY NR G Urine pH measurement by test strip 5.0 5-9 Specific gravity of urine by test strip >= 1.016-1.022 Urine protein assay by test strip, semi-quantitative 3+ NEGATIVE Urine glucose detection by automated test strip NE GATIVE NEGATIVE Erythrocytes detection in urine sediment by light micr oscopy 3+ NEGATIVE Urine ketones detection by automated test strip TR LISS NEGATIVE Urine nitrite detection by test strip NEGATIVE NEGATIVE Urine total bilirubin detection by test strip 2+ NEGATIVE Urine urobilinogen measurement by automated test strip (mass/volume) 0.2 mg/dL < = 1.0 Urine leukocyte esterase detection by dipstick TRA CE NEGATIVE Automated urine sediment erythrocyte cou nt by microscopy (number/high power field) > [HPF] NRG Automated urine sediment leukocyte count by microscopy (number/high power field) [HPF] NRG Bacteria detection in urine sediment by light microsco py MODERATE NRG Crystals detection in urine sediment by light microsco py PRESENT NRG Casts detection in urine sediment by light microscopy PRESENT NRG Mucus detection in urine sediment by light microscopy NEGATIVE NRG Complete urinalysis with reflex to culture CULTURE PENDING NRG Amorphous sediment detection in urine sediment by ligh t microscopy MOD AUDELIA URATES NRG Coarse granular casts detection in urine sediment by l ight microscopy >50 NRG Bacterial urine culture - 01/06/20 19:32 Bacterial urine culture NG NRG Serum or plasma lactate measurement (mol es/volume) - 01/06/20 20:19 Serum or plasma lactate measurement (moles/volume) 4.67 mmol/L 0.50-2.00 Complete blood count (CBC) with automate d white blood cell (WBC) differential - 03/08/20 19:00 Blood leukocytes automated count (number/volume) 10.9 10*3/uL 4.3-11.0 Blood erythrocytes automated count (number/volume) 2.80 10*6/uL 4.35-5.85 Venous blood hemoglobin measurement (mass/volume) 10.1 g/dL 11.5-16.0 Blood hematocrit (volume fraction) 29 % 35-52 Automated erythrocyte mean corpuscular volume 104 [foz_us] 80-99 Automated erythrocyte mean corpuscular h emoglobin (mass per erythrocyte) 36 pg 25-34 Automated erythrocyte mean corpuscular h emoglobin concentration measurement (mass/volume) 35 g/dL 32-36 Automated erythrocyte distribution width ratio 25. 9 % 10.0- 14.5 Automated blood platelet count (count/volume) 142 10*3/uL 130-400 Automated blood platelet mean volume measurement 11.1 [foz_us] 7.4-10.4 Automated blood neutrophils/100 leukocytes 77 % 42-75 Automated blood lymphocytes/100 leukocytes 16 % 12-44 Blood monocytes/100 leukocytes 7 % 0-12 Automated blood eosinophils/100 leukocytes 1 % 0-10 Automated blood basophils/100 leukocytes 0 % 0-10 Blood neutrophils automated count (number/volume) 8.4 10*3 1.8-7.8 Blood lymphocytes automated count (number/volume) 1.7 10*3 1.0-4.0 Blood monocytes automated count (number/volume) 0. 7 10*3 0.0-1.0 Automated eosinophil count 0.1 10*3/uL 0 .0-0.3 Automated blood basophil count (count/volume) 0.0 10*3/uL 0.0-0.1 Comprehensive metabolic panel - 03/08/20 19:00 Serum or plasma sodium measurement (moles/volume) 128 mmol/L 135-145 Serum or plasma potassium measurement (moles/volume) 4.1 mmol/L 3.6-5.0 Serum or plasma chloride measurement (moles/volume) 91 mmol/L 98-107 Carbon dioxide 18 mmol/L 21-32 Serum or plasma anion gap determination (moles/volume) 19 mmol/L 5-14 Serum or plasma urea nitrogen measurement (mass/volume ) 73 mg/dL 7-18 Serum or plasma creatinine measurement (mass/volume) 5.88 mg/dL 0.60-1.30 Serum or plasma urea nitrogen/creatinine mass ratio 12 NRG Serum or plasma creatinine measurement w ith calculation of estimated glomerular filtration rate 7 NRG Serum or plasma glucose measurement (mass/volume) 138 mg/dL 70-105 Serum or plasma calcium measurement (mass/volume) 10.1 mg/dL 8.5-10.1 Serum or plasma total bilirubin measurement (mass/volu me) 4.4 mg/dL 0.1-1.0 Serum or plasma alkaline phosphatase chanelle surement (enzymatic activity/volume) 149 U/L 40-136 Serum or plasma aspartate aminotransfera se measurement (enzymatic activity/volume) 66 U/L 5-34 Serum or plasma alanine aminotransferase measurement (enzymatic activity/volume) 28 U/L 0-55 Serum or plasma protein measurement (mass/volume) 8.2 g/dL 6.4-8.2 Serum or plasma albumin measurement (mass/volume) 3.5 g/dL 3.2-4.5 CALCIUM CORRECTED 10.5 mg/dL 8.5-10.1 Magnesium - 03/08/20 19:00 Magnesium 2.0 mg/dL 1.6-2.4 PT panel in platelet poor plasma by coag ulation assay - 03/08/20 19:00 Prothrombin time (PT) in platelet poor plasma by coagu lation assay 19.0 s 12.2-14.7 INR in platelet poor plasma or blood by coagulation as say 1.5 0.8-1.4 Activated partial thromboplastin time (a PTT) in platelet poor plasma bycoagulation assay - 03/08/20 19:00 Activated partial thromboplastin time (a PTT) in platelet poor plasma bycoagulation assay 32 s 24-35 Blood lactic acid measurement (moles/vol ume) - 03/08/20 19:00 Blood lactic acid measurement (moles/volume) 1.76 mmol/L 0.50-2.00 Serum or plasma phosphate measurement (m ass/volume) - 03/08/20 19:00 Serum or plasma phosphate measurement (mass/volume) 2.1 mg/dL 2.3-4.7 PROCALCITONIN (PCT) - 03/08/20 19:00 PROCALCITONIN (PCT) 1.07 ng/mL <0.10 Serum or plasma troponin i.cardiac measu rement (mass/volume) - 03/08/20 19:00 Serum or plasma troponin i.cardiac measurement (mass/v olume) 0.227 ng/mL <0.028 Serum or plasma amylase measurement (enz ymatic activity/volume) - 03/08/20 19:00 Serum or plasma amylase measurement (enzymatic activit y/volume) 29 U/L 25-125 Ammonia - 03/08/20 19:00 Ammonia 109 umol/L 11-32 Complete urinalysis with reflex to cultu re - 03/08/20 19:20 Urine color determination DARK YELLOW N RG Urine clarity determination CLOUDY NR G Urine pH measurement by test strip 5.5 5-9 Specific gravity of urine by test strip 1.020 1.016-1.022 Urine protein assay by test strip, semi-quantitative 3+ NEGATIVE Urine glucose detection by automated test strip TR LISS NEGATIVE Erythrocytes detection in urine sediment by light micr oscopy 3+ NEGATIVE Urine ketones detection by automated test strip TR LISS NEGATIVE Urine nitrite detection by test strip POSITIVE NEGATIVE Urine total bilirubin detection by test strip 2+ NEGATIVE Urine urobilinogen measurement by automated test strip (mass/volume) 1.0 mg/dL < = 1.0 Urine leukocyte esterase detection by dipstick 2+ NEGATIVE Automated urine sediment erythrocyte cou nt by microscopy (number/high power field) RARE NRG Automated urine sediment leukocyte count by microscopy (number/high power field) [HPF] NRG Bacteria detection in urine sediment by light microsco py MODERATE NRG Squamous epithelial cells detection in u rine sediment by light microscopy NONE NRG Crystals detection in urine sediment by light microsco py NONE NRG Casts detection in urine sediment by light microscopy PRESENT NRG Mucus detection in urine sediment by light microscopy NEGATIVE NRG Complete urinalysis with reflex to culture YES NRG Yeast detection in urine sediment by light microscopy FEW NRG Hyaline casts detection in urine sediment by light ricardo roscopy RARE NRG Capillary blood glucose measurement by g lucometer (mass/volume) - 03/08/20 19:28 Capillary blood glucose measurement by glucometer (mas s/volume) 160 mg/dL 70-110 Arterial blood gas measurement - 0 21:40 Blood pCO2 27 mm[Hg] 35-45 Blood pO2 63 mm[Hg] 79-93 Arterial blood bicarbonate measurement (moles/volume) 20 mmol/L 23-27 Arterial blood base excess by calculation -2.9 mmo l/L -2.5-2.5 Arterial blood oxygen saturation measurement 92 % 94-100 * Inhaled oxygen flow rate NOT INDICATED NRG Arterial blood pH measurement with patient temperature correction 7.49 7.37-7.43 Arterial blood carbon dioxide, total measurement (mole s/volume) 20.9 mmol/L 21.0-31.0 Body site LEFT RADIAL NRG Assessment of wrist artery patency prior to arterial p uncture YES-POS NRG Setting of ventilation mode NO NR G Measurement of body temperature 36.7 NRG Encounters ACCT No. Visit Date/Time Discharge Status Pt. Type Provider Facility Loc./Unit Complaint [id number] 03/08/2020 18:54:00 020 22:25:00 DIS Emergency REAGAN DO, NORBERT K Vi a [facility] ER LETHARGY [id number] 01/06/2020 18:28:00 020 22:02:00 DIS Emergency HESHAM YEBOAH MD [facility] ER FALL
== END 2020-03-08 22:25 | disposition short-term general hospital (02) ==
LOC: EDUNIT# 18:53 → ER 18:54
DX: K72.91 Hepatic failure, unspecified with coma (principal); E72.20 Disorder of urea cycle metabolism, unspecified; I12.9 Hypertensive chronic kidney disease with stage 1 through stage 4 chronic kidney disease, or unspecified chronic kidney disease; N18.6 End stage renal disease; E87.70 Fluid overload, unspecified; E87.1 Hypo-osmolality and hyponatremia; E83.39 Other disorders of phosphorus metabolism; N39.0 Urinary tract infection, site not specified; Z99.2 Dependence on renal dialysis
CPT/HCPCS: 36415; 36600; 51702; 70450; 71045; 80053; 81000; 82140; 82150; 82805; 82962; 83605; 83735; 84100; 84145; 84484; 85025; 85610; 85730; 87040; 87088; 87324; 87449; 87493; 93005; 93041

== ENCOUNTER 2020-03-25 12:12 | Inpatient (IN) | payer BC ==
[~2020-03-25] VITALS: Ht 162.6 cm; Wt 84.5 kg
[2020-03-25 12:34] LABS: BASOPHILS % (AUTO) 0 % (0-10); EOSINOPHILS # (AUTO) 0.1 10^3/uL (0.0-0.3); EOSINOPHILS % (AUTO) 1 % (0-10); LYMPHOCYTES # (AUTO) 2.8 X 10^3 (1.0-4.0); LYMPHOCYTES % (AUTO) 34 % (12-44); MEAN CORPUSCULAR HEMOGLOBIN 37 PG (25-34); MEAN CORPUSCULAR HGB CONC 31 G/DL (32-36); MEAN CORPUSCULAR VOLUME 118 FL (80-99); MEAN PLATELET VOLUME 11.4 FL (7.4-10.4); MONOCYTES # (AUTO) 0.4 X 10^3 (0.0-1.0); MONOCYTES % (AUTO) 5 % (0-12); NEUTROPHILS % (AUTO) 61 % (42-75); PLATELET COUNT 102 10^3/uL (130-400); RED CELL DISTRIBUTION WIDTH 26.7 % (10.0-14.5); WHITE BLOOD COUNT 8.3 10^3/uL (4.3-11.0)
[2020-03-25 12:48] LABS: ALBUMIN 1.9 GM/DL (3.2-4.5); POTASSIUM 4.3 MMOL/L (3.6-5.0)
[2020-03-25 12:49] LABS: CALCIUM 7.9 MG/DL (8.5-10.1); HEMATOCRIT 17 % (35-52); HEMOGLOBIN 5.2 G/DL (11.5-16.0)
[2020-03-25 12:50] LABS: INR 1.8 (0.8-1.4); PROTHROMBIN TIME PATIENT 21.3 SEC (12.2-14.7)
--- NOTE | 2020-03-25 12:50 | NUR ---
First unit of blood started at 1240. Stop time 1246. Unit number [id number]. TEMP 34.4 BP 67/40 PULSE 82
[2020-03-25 12:52] LABS: BILIRUBIN,TOTAL 2.9 MG/DL (0.1-1.0)
--- NOTE | 2020-03-25 13:00 | NUR ---
Dr. Roberts removed pt from O2 at this time. O2 sat 92% on room air at this time.
--- NOTE | 2020-03-25 13:02 | NUR ---
Peter Roberts in room to discuss end of care with family at this time.
--- NOTE | 2020-03-25 13:03 | NUR ---
Second unit of blood started at 1246. Stopped at 1303. Unit number [id number]. TEMP 34.7 BP 95/37 PULSE 80
--- NOTE | 2020-03-25 13:15 | NUR ---
PALLIATIVE CARE RN called to the ED to help assess and assist in disposition. Patient ES renal disease and has been on hemodialysis. She presents with anemia. Patient has very shallow respirations currently and has been transitioned from aggressive resuscitation efforts to now CCMO. Waxy in appearance and cool to the touch. She is mottling on knees and her ears are starting to thin and turn. It is anticipated that she will within 6-12 hours and that is a generous estimate. She is being allowed to stay in the hospital rather than discharging to home due her needs. This is much appreciated by family.
--- NOTE | 2020-03-25 13:16 | ED General ---
General Chief Complaint: Altered Mental Status Stated Complaint: LETHARGIC;VOMITING BLOOD Source of Information: Patient Exam Limitations: Physical Impairments History of Present Illness Date Seen by Provider: March 25, 2020 Time Seen by Provider: 12:15 Initial Comments Here by family with report of vomiting blood this morning as well as a few bloody bowel movements. Patient has known end-stage renal disease with last hemoglobin of 6.8 last week. They were trying to take her to dialysis today when she started having the bloody vomit and stool. She became unresponsive and they brought her here. Minimally responsive and slow shallow breathing noted. Patient unresponsive on arrival to the bed. Bloody stool noted. Patient pale and clammy. Information via family. Patient has long history of illness over the last 5 months including prolonged hospital stay and stay at long-term care facility prior to coming home recently. Has had problem with esophageal varices and bleeding and has had previous banding. Normally seen at [facility] in [facility] for dialysis and inpatient status. Timing/Duration: 4-6 Hours Severity: Severe Associated Systoms: Nausea/Vomiting, Weakness Allergies and Home Medications Allergies Coded Allergies: No Known Drug Allergies (Unverified , 01/06/20) Patient Home Medication List Home Medication List Reviewed: Yes Review of Systems Review of Systems Constitutional: see HPI Unable to complete review of systems due to altered mental status Past Mwzxfih-Xhkqyd-Ctdygg Hx Past Med/Social Hx: Reviewed Nursing Past Med/Soc Hx Patient Social History Alcohol Use: Denies Use Recreational Drug Use: No 2nd Hand Smoke Exposure: No Recent Foreign Travel: No Contact w/Someone Who Travel: No Recent Hopitalizations: Yes Past Medical History Surgeries: Yes (ESOPHAGEAL BANDING;PARACENTESIS;R CENTRAL DIALYSIS CATHETER;) Dialysis, Gallbladder, Hysterectomy Respiratory: No Cardiac: Yes High Cholesterol, Hypertension 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 Genitourinary: Yes (ESRD ON DIALYSIS SINCE 12/2019) Renal Failure, Dialysis Gastrointestinal: Yes (ESLF DX 12/2019;HASSAN;BANDING/ESOPHAGEAL VARICES;ASCITES/PARACENTESIS;ERINN) Liver Disease/Jaundice, Esophageal Varices, Cirrhosis, Gall Bladder Disease Musculoskeletal: No Endocrine: Yes Diabetes, Non-Insulin dep Cancer: No Psychosocial: Yes Anxiety, Depression Family Medical History Reviewed Nursing Family Hx Physical Exam Vital Signs Vital Signs - First Documented 03/25/20 12:12 Temp 35.1 Pulse Ox 98 O2 Delivery OxyMask O2 Flow Rate 5.00 Capillary Refill : Height, Weight, BMI Height: '" Weight: lbs. oz. kg; 37.00 BMI Method: General Appearance: Chronically ill, Severe Distress Neck: Non Tender, Supple Respiratory: Lungs Clear, Normal Breath Sounds, Other (agonal breathing initially that did improve to slow shallow breathing) Cardiovascular: Regular Rate, Rhythm, Normal Peripheral Pulses Genital/Rectal: Other (dark bloody stool noted with clots) Extremity: Pedal Edema Neurologic/Psychiatric: Other (unresponsive) Skin: Cool, Pallor Focused Exam Lactate Level 03/25/20 12:20: Lactic Acid Level 8.34*H Lactic Acid Level Laboratory Tests Test 03/25/20 12:20 Lactic Acid Level 8.34 MMOL/L (0.50-2.00) *H Progress/Results/Core Measures Suspected Sepsis SIRS Temperature: Pulse: Respiratory Rate: Laboratory Tests 03/25/20 12:20: White Blood Count 8.3 Blood Pressure / Mean: 03/25/20 12:20: Lactic Acid Level 8.34*H Laboratory Tests 03/25/20 12:20: Creatinine 3.43H, INR Comment 1.8H, Platelet Count 102L, Total Bilirubin 2.9H Results/Orders Lab Results Laboratory Tests Test 03/25/20 12:20 Range/Units White Blood Count 8.3 4.3-11.0 10^3/uL Red Blood Count 1.42 L 4.35-5.85 10^6/uL Hemoglobin 5.2 *L 11.5-16.0 G/DL Hematocrit 17 *L 35-52 % Mean Corpuscular Volume 118 H 80-99 FL Mean Corpuscular Hemoglobin 37 H 25-34 PG Mean Corpuscular Hemoglobin Concent 31 L 32-36 G/DL Red Cell Distribution Width 26.7 H 10.0-14.5 % Platelet Count 102 L 130-400 10^3/uL Mean Platelet Volume 11.4 H 7.4-10.4 FL Neutrophils (%) (Auto) 61 42-75 % Lymphocytes (%) (Auto) 34 12-44 % Monocytes (%) (Auto) 5 0-12 % Eosinophils (%) (Auto) 1 0-10 % Basophils (%) (Auto) 0 0-10 % Neutrophils # (Auto) 5.0 1.8-7.8 X 10^3 Lymphocytes # (Auto) 2.8 1.0-4.0 X 10^3 Monocytes # (Auto) 0.4 0.0-1.0 X 10^3 Eosinophils # (Auto) 0.1 0.0-0.3 10^3/uL Basophils # (Auto) 0.0 0.0-0.1 10^3/uL Prothrombin Time 21.3 H 12.2-14.7 SEC INR Comment 1.8 H 0.8-1.4 Activated Partial Thromboplast Time 39 H 24-35 SEC Sodium Level 127 L 135-145 MMOL/L Potassium Level 4.3 3.6-5.0 MMOL/L Chloride Level 93 L 98-107 MMOL/L Carbon Dioxide Level 18 L 21-32 MMOL/L Anion Gap 16 H 5-14 MMOL/L Blood Urea Nitrogen 39 H 7-18 MG/DL Creatinine 3.43 H 0.60-1.30 MG/DL Estimat Glomerular Filtration Rate 14 BUN/Creatinine Ratio 11 Glucose Level 125 H 70-105 MG/DL Lactic Acid Level 8.34 *H 0.50-2.00 MMOL/L Calcium Level 7.9 L 8.5-10.1 MG/DL Corrected Calcium 9.6 8.5-10.1 MG/DL Total Bilirubin 2.9 H 0.1-1.0 MG/DL Aspartate Amino Transf (AST/SGOT) 133 H 5-34 U/L Alanine Aminotransferase (ALT/SGPT) 54 0-55 U/L Alkaline Phosphatase 227 H 40-136 U/L Troponin I 0.162 H <0.028 NG/ML Total Protein 5.0 L 6.4-8.2 GM/DL Albumin 1.9 L 3.2-4.5 GM/DL My Orders Orders - PHILIP MANUEL MD Cbc With Automated Diff (03/25/20 12:23) Comprehensive Metabolic Panel (03/25/20 12:23) Blood Culture (03/25/20 12:23) Sputum Culture (03/25/20 12:23) Urinalysis (03/25/20 12:23) Urine Culture (03/25/20 12:23) Protime With Inr (03/25/20 12:23) Partial Thromboplastin Time (03/25/20 12:23) Ed Iv/Invasive Line Start (03/25/20 12:23) Troponin I (03/25/20 12:23) Vital Signs Adult Sepsis Patie Q15M (03/25/20 12:23) O2 (03/25/20 12:23) Remove Rings In Anticipation O (03/25/20 12:23) Lactic Acid Analyzer (03/25/20 12:23) Red Cells Leukocytes Reduced (03/25/20 12:40) Type And Screen (03/25/20 12:40) Lorazepam Injection (Ativan Injection) (03/25/20 13:30) Vital Signs/I&O 03/25/20 03/25/20 12:12 12:12 Temp 35.1 B/P (MAP) Pulse Ox 98 O2 Delivery OxyMask O2 Flow Rate 5.00 Capillary Refill : Progress Note : Progress Note Seen and evaluated on arrival. Patient unresponsive in a wheelchair. Ultimately lifted to bed via blanket lift. Bloody stool noted. Unable to palpate a radial pulses but does have a weak carotid pulse. Shallow breathing noted. High flow O2 placed. Patient has PICC line to the right upper arm. This was accessed and labs were drawn. Initiated massive transfusion protocol due to concerns of significant blood loss and uncrossed O- blood 2 units called for. Sepsis order set initiated. Patient's O2 sat is 100% on high flow O2 and initial blood pressure 70s over 50s and 60s over 40s. brought to room and findings concerns discussed with him. I initially read discussed aggressive resuscitation but patient is DO NOT RESUSCITATE. Opted to give blood and see how she is doing afterwards. During completion of transfusion, patient's sister and daughters also arrived to room. Discussion was had with the and family and all agree that at this point comfort care and hospice is a much better option for the patient. The spring intern was notified. Palliative care nurse notified to see patient as well. Patient did receive 2 units of blood. 1310: Patient does appear to mumble a few words but is in and out. Oxygen has been DC'd. Patient appears comfortable otherwise. Plan is for admission to the hospital for comfort care. 1320: I did discuss the case with Dr. Armendariz, on-call for [facility] and she accepts patient for admission inpatient status for comfort care. 1335: Ativan 0.5 mg IV given for air hunger. We have verify the family will be observed remain at bedside during admission. All questions answered. Patient's family appreciative of care. Patient currently comfortable. Departure Communication (Admissions) Time/Spoke to Admitting Phy: 13:20 Impression Primary Impression: End stage renal disease on dialysis Additional Impressions: Profound anemia Qualified Codes: D64.9 - Anemia, unspecified Lactic acidosis Disposition: ADMITTED INPATIENT Condition: Critical Admissions Decision to Admit Reason: Admit from ER (General) Decision to Admit/Date: March 25, 2020 Time/Decision to Admit Time: 13:20 Departure-Patient Inst. Referrals: NO,LOCAL PHYSICIAN (PCP/Family) Primary Care Physician PHILIP MANUEL MD March 25, 2020 13:16
[2020-03-25] MEDS ORDERED: LORazepam INJ 2 MG/ML (ATIVAN) VIAL ONE (13:25)
[2020-03-25] MEDS ORDERED: LORazepam INJ 2 MG/ML (ATIVAN) VIAL IVP ONE (13:30)
--- OUTSIDE RECORDS SUMMARY | 2020-03-25 13:39 | XMS REPORT | Continuity of Care Document ---
Author Organization Unknown Address Unknown Phone Unavailable Allergies Active Description Code Type Severity Reaction Onset Reported/Identified Relationship to Patient Clinical Status Yes No Known Drug Allergies [id number] Drug Allergy Unknown N/A 01/06/2020 Medications There [...] Ot N17.9 ACUTE KIDNEY FAILURE, UNSPECIFIED 01/06/2020 HESHAM YEBOAH MD Ot R41.0 DISORIENTATION, UNSPECIFIED 01/06/2020 EDILIA HARRELL, HESHAM Combs Ot W19.XXXA UNSPECIFIED FALL, INITIAL ENCOUNTER 01/11/2020 EDILIA HARRELL, HESHAM Combs Ot E72.20 DISORDER OF UREA CYCLE METABOLISM, UNSPE 01/11/2020 EDILIA HARRELL, HESHAM Combs Ot J32.9 CHRONIC SINUSITIS, UNSPECIFIED 01/11/2020 [...] Ot N17.9 ACUTE KIDNEY FAILURE, UNSPECIFIED 01/15/2020 EDILIA HARRELL, HESHAM Combs Ot R41.0 DISORIENTATION, UNSPECIFIED 01/15/2020 EDILIA HARRELL, HESHAM Combs Ot W19.XXXA UNSPECIFIED FALL, INITIAL ENCOUNTER 03/08/2020 REAGAN DO, NORBERT K Ot E72.20 DISORDER OF UREA CYCLE METABOLISM, UNSPE 03/08/2020 REAGAN DO, NORBERT K Ot E83.39 OTHER DISORDERS OF PHOSPHORUS METABOLISM 03/08/2020 REAGAN DO, NORBERT K Ot E87.1 HYPO-OSMOLALITY AND HYPONATREMIA 03/08/2020 REAGAN DO, NORBERT K Ot E87.70 FLUID OVERLOAD, UNSPECIFIED 03/08/2020 REAGAN DO, NORBERT K Ot I12.9 HYPERTENSIVE CHRONIC KIDNEY DISEASE W ST 03/08/2020 REAGAN DO, NORBERT K Ot K72.91 HEPATIC FAILURE, UNSPECIFIED WITH COMA 03/08/2020 REAGAN DO, NORBERT K Ot N18.6 END STAGE RENAL DISEASE 03/08/2020 REAGAN DO, NORBERT K Ot N39.0 URINARY TRACT INFECTION, SITE NOT SPECIF 03/08/2020 REAGAN DO, NORBERT K Ot R41.82 ALTERED MENTAL STATUS, UNSPECIFIED 03/08/2020 REAGAN DO, NORBERT K Ot Z99.2 DEPENDENCE ON RENAL DIALYSIS 03/10/2020 REAGAN DO, NORBERT K Ot E72.20 DISORDER OF UREA CYCLE METABOLISM, UNSPE 03/10/2020 REAGAN DO, NORBERT K Ot E83.39 OTHER DISORDERS OF PHOSPHORUS METABOLISM 03/10/2020 REAGAN DO, NORBERT K Ot E87.1 HYPO-OSMOLALITY AND HYPONATREMIA 03/10/2020 REAGAN DO, NORBERT K Ot E87.70 FLUID OVERLOAD, UNSPECIFIED 03/10/2020 REAGAN DO, NORBERT K Ot I12.9 HYPERTENSIVE CHRONIC KIDNEY DISEASE W ST 03/10/2020 REAGAN DO, NORBERT K Ot K72.91 HEPATIC FAILURE, UNSPECIFIED WITH COMA 03/10/2020 REAGAN DO, NORBERT K Ot N18.6 END STAGE RENAL DISEASE 03/10/2020 REAGAN DO, NORBERT K Ot N39.0 URINARY TRACT INFECTION, SITE NOT SPECIF 03/10/2020 NORBERT KIRK DO Ot R41.82 ALTERED MENTAL STATUS, UNSPECIFIED 03/10/2020 NORBERT KIRK DO Ot Z99.2 DEPENDENCE ON RENAL DIALYSIS Procedures There is no data. Results Test [...] TEXT ENTRY 2 PRELIM RAPID ID AT [facility] 01/07/20 1 0:45 NRG FREE TEXT ENTRY 3 RML CONFIRMED ID 01/08/20 14:05 NRG Bacterial blood culture - 01/06/20 19:09 FREE TEXT EXTERNAL SEE OTHER CULTURE FOR SUSCEPTIB ILITY NRG QUANTITY OF GROWTH . NRG Bacterial blood culture SEE COMMEN NRG FREE TEXT ENTRY 2 PRELIM RAPID ID AT [facility] 01/08/20 8 :00 NRG FREE TEXT [...] - 03/08/20 19:00 Ammonia 109 umol/L 11-32 Bacterial blood culture - 03/08/20 19:05 QUANTITY OF GROWTH . [facility] Bacterial blood culture SEE COMMEN NR Complete urinalysis with reflex to cultu re [...] count by microscopy (number/high power field) [HPF] NR Bacteria detection in urine sediment by light [...] sediment by light ricardo roscopy RARE NRG Bacterial urine culture - 03/08/20 19:20 Bacterial urine culture [id number] NRG COLONY COUNT <10,000 NRG FTX;REPORTABLE EXTENDED SPECTRUM BETA LACTAMSE NRG FREE TEXT ENTRY 2 PRODUCING STRAIN, RESISTANT TO NRG FREE TEXT ENTRY 3 PENICILLINS, CEPHALOSPORINS, T A ZTREONAM NRG FREE TEXT ENTRY 4 RESISTANT ORGANISM/CONTACT PRECA UTIONS NRG SUSCEPTIBILITY SUSCEPTIBILITY REPORTED 03/11/20 9:2 0 NRG RAPID ID PRELIM RAPID ID TEST AT [facility] 03/09 15:10 NRG ID CONFIRMATION IDENTIFIED BY [facility] NRG Dirithromycin susceptibility test by dis k diffusion - 03/08/20 19:20 Gentamicin susceptibility test by minimum inhibitory c oncentration > NRG Trimethoprim/sulfamethoxazole susceptibi lity test by minimum inhibitoryconcentration <= NRG Levofloxacin susceptibility test by minimum inhibitory concentration > NRG Ampicillin susceptibility test by minimum inhibitory c oncentration > NRG Cefazolin susceptibility test by minimum inhibitory co ncentration > NRG Ceftriaxone susceptibility test by minimum inhibitory concentration > NRG Ciprofloxacin susceptibility test by minimum inhibitor y concentration > NRG Meropenem susceptibility test by minimum inhibitory co ncentration <= NRG Nitrofurantoin susceptibility test by mi nimum inhibitory concentration <= NRG Cefepime susceptibility test by minimum inhibitory con centration > NRG Ertapenem susceptibility test by minimum inhibitory co ncentration <= NRG Amoxicillin and clavulanate potassium susc RICARDO R NRG Dirithromycin susceptibility test by dis k diffusion - 03/08/20 19:20 Vancomycin susceptibility test by minimum inhibitory c oncentration 2 NRG Levofloxacin susceptibility test by minimum inhibitory concentration <= NRG Ampicillin susceptibility test by minimum inhibitory c oncentration 1 NRG Nitrofurantoin susceptibility test by mi nimum inhibitory concentration <= NRG Linezolid susceptibility test by minimum inhibitory co ncentration <= NRG Daptomycin susc RICARDO 2 NRG Capillary blood glucose measurement by g lucometer (mass/volume) - 03/08/20 19:28 Capillary blood glucose measurement by glucometer (mas s/volume) 160 mg/dL 70-110 Clostridium difficile DNA detection by rigo brito and target amplification method - 03/08/20 19:30 C DIFF MOLECULAR RESULT Negative for toxigen ic C diff by molecular method NRG C DIFFICILE AG + TOXIN A/B. - 03/08/20 1 9:30 FREE TEXT ENTRY 3 POSITIVE FOR GDH ANTIGENS NRG CALL POSITIVES (F1 HELP) FAXED TO [facility] 03/09 8:[address] NRG RESULTS INDETERMINANT; MOLECULAR TEST TO FOLLOW NRG FREE TEXT ENTRY 4 NEGATIVE FOR TOXINS A AND B NRG Bacterial blood culture - 03/08/20 19:39 QUANTITY OF GROWTH . NRG Bacterial blood culture SEE COMMEN NRG SUSCEPTIBILITY NO SUSCEPTIBILITY PERFORMED NRG Arterial blood gas measurement - 0 21:40 [...] G Measurement of body temperature 36.7 NRG Comprehensive metabolic panel - 03/25/20 12:20 Serum or plasma sodium measurement (moles/volume) 127 mmol/L 135-145 Serum or plasma potassium measurement (moles/volume) 4.3 mmol/L 3.6-5.0 Serum or plasma chloride measurement (moles/volume) 93 mmol/L 98-107 Carbon dioxide 18 mmol/L 21-32 Serum or plasma anion gap determination (moles/volume) 16 mmol/L 5-14 Serum or plasma urea nitrogen measurement (mass/volume ) 39 mg/dL 7-18 Serum or plasma urea nitrogen/creatinine mass ratio 11 NRG Serum or plasma creatinine measurement w ith calculation of estimated glomerular filtration rate 14 NRG Serum or plasma glucose measurement (mass/volume) 125 mg/dL 70-105 Serum or plasma calcium measurement (mass/volume) 7.9 mg/dL 8.5-10.1 Serum or plasma total bilirubin measurement (mass/volu me) 2.9 mg/dL 0.1-1.0 Serum or plasma alkaline phosphatase chanelle surement (enzymatic activity/volume) 227 U/L 40-136 Serum or plasma aspartate aminotransfera se measurement (enzymatic activity/volume) 133 U/L 5-34 Serum or plasma alanine aminotransferase measurement (enzymatic activity/volume) 54 U/L 0-55 Serum or plasma protein measurement (mass/volume) 5.0 g/dL 6.4-8.2 Serum or plasma albumin measurement (mass/volume) 1.9 g/dL 3.2-4.5 CALCIUM CORRECTED 9.6 mg/dL 8.5-10.1 Complete blood count (CBC) with automate d white blood cell (WBC) differential - 03/25/20 12:20 Blood leukocytes automated count (number/volume) 8.3 10*3/uL 4.3-11.0 Blood erythrocytes automated count (number/volume) 1.42 10*6/uL 4.35-5.85 Venous blood hemoglobin measurement (mass/volume) 5.2 g/dL 11.5-16.0 Blood hematocrit (volume fraction) 17 % 35-52 Automated erythrocyte mean corpuscular volume 118 [foz_us] 80-99 Automated erythrocyte mean corpuscular h emoglobin (mass per erythrocyte) 37 pg 25-34 Automated erythrocyte mean corpuscular h emoglobin concentration measurement (mass/volume) 31 g/dL 32-36 Automated erythrocyte distribution width ratio 26. 7 % 10.0- 14.5 Automated blood platelet count (count/volume) 102 10*3/uL 130-400 Automated blood platelet mean volume measurement 11.4 [foz_us] 7.4-10.4 Automated blood neutrophils/100 leukocytes 61 % 42-75 Automated blood lymphocytes/100 leukocytes 34 % 12-44 Blood monocytes/100 leukocytes 5 % 0-12 Automated blood eosinophils/100 leukocytes 1 % 0-10 Automated blood basophils/100 leukocytes 0 % 0-10 Blood neutrophils automated count (number/volume) 5.0 10*3 1.8-7.8 Blood lymphocytes automated count (number/volume) 2.8 10*3 1.0-4.0 Blood monocytes automated count (number/volume) 0. 4 10*3 0.0-1.0 Automated eosinophil count 0.1 10*3/uL 0 .0-0.3 Automated blood basophil count (count/volume) 0.0 10*3/uL 0.0-0.1 PT panel in platelet poor plasma by coag ulation assay - 03/25/20 12:20 Prothrombin time (PT) in platelet poor plasma by coagu lation assay 21.3 s 12.2-14.7 INR in platelet poor plasma or blood by coagulation as say 1.8 0.8-1.4 Activated partial thromboplastin time (a PTT) in platelet poor plasma bycoagulation assay - 03/25/20 12:20 Activated partial thromboplastin time (a PTT) in platelet poor plasma bycoagulation assay 39 s 24-35 Blood lactic acid measurement (moles/vol ume) - 03/25/20 12:20 Blood lactic acid measurement (moles/volume) 8.34 mmol/L 0.50-2.00 Serum or plasma troponin i.cardiac measu rement (mass/volume) - 03/25/20 12:20 Serum or plasma troponin i.cardiac measurement (mass/v olume) 0.162 ng/mL <0.028 RED CELLS LEUKO REDUCED AS1 - 03/25/20 1 2:20 RED CELLS LEUKO REDUCED AS1 I SSUED 03/25/20 1230 NRG RED CELLS LEUKO REDUCED PH 2 - 03/25/20 12:20 RED CELLS LEUKO REDUCED PH 2 ISSUED 03/25/20 1230 NRG Blood type T Indirect antibody screen pa johanna - 03/25/20 12:20 WRISTBAND NUMBER [id number] NRG ABO+Rh group OP NRG Blood group antibody screen NEGATIVE NR G Encounters ACCT No. Visit Date/Time Discharge Status Pt. Type Provider Facility Loc./Unit Complaint [id number] 03/08/2020 18:54:00 020 22:25:00 DIS Emergency REAGAN NORBERT POWELL [facility] ER LETHARGY [id number] 01/06/2020 18:28:00 020 22:02:00 DIS Emergency EDILIA HARRELL, HESHAM Combs [facility] ER [facility] [id number] 03/25/2020 12:40:00 Document Registration
[2020-03-25 13:42] LABS: CREATININE SERUM 3.43 MG/DL (0.60-1.30)
--- NOTE | 2020-03-25 14:07 | NUR ---
CASA PATTON admitted to room 406-1, with an admitting diagnosis of PROFOUND ANEMIA, END STAGE RENAL DISEASE AND COMFORT CARE, on 03/25/20 from ED via STRETCHER, accompanied by ED STAFF AND FAMILY. CASA PATTON';S FAMILY introduced to surroundings, call light, bed controls, phone, TV, temperature control, lights, meal times, smoking policy, visitor policy, side rail policy, bathrooms and showers. Patient Rights given to patient in the handbook. [facility] FAMILY verbalizes understanding that [facility] is not responsible for the loss or damage to any personal effects or valuables that are kept in the patients posession during their hospitalization. The following Patient Care Plans were discussed with the PATIENT'S FAMILY: Discharge Planning, AND COMFORT CARE, . [facility] PAT[facility] FAMILY verbalizes understanding of Interdisciplinary Patient Education. Patient and/or family were informed about the Rapid Response Team and its purpose.
--- NOTE | 2020-03-25 14:24 | NUR ---
PALLIATIVE CARE RN in to see if patient got settled in the room. She has just arrived and family is allowed to be at bedside. Courtesy cart is ordered. Patient denies discomfort at this time. Respirations are still very shallow and her responsiveness is delayed. Will continue to follow and offer support as needed.
[2020-03-25] MEDS ORDERED: ONDANSETRON 4 MG/2 ML (SDV) Z0FRAN IVP PRN (14:30)
[2020-03-25] MEDS ORDERED: ATROPINE 1% OPHTHALMIC SOLN 2 ML SL PRN (14:30)
[2020-03-25] MEDS ORDERED: BISACODYL 10 MG SUPP (DULCOLAX) PR PRN (14:30)
[2020-03-25] MEDS ORDERED: ACETAMINOPHEN 650 MG SUPP (TYLENOL) PR PRN (14:30)
[2020-03-25] MEDS ORDERED: SALIVA STIMULANT MOUTH SPRAY (BIOTENE) 1.5 OZ MM PRN (14:30)
[2020-03-25] MEDS ORDERED: LORazepam INJ 2 MG/ML (ATIVAN) VIAL IVP PRN (14:30)
[2020-03-25] MEDS ORDERED: ARTIFICAL TEARS 0.4 ML UNIT DOSE (REFRESH PLUS) OU PRN (14:30)
[2020-03-25] MEDS ORDERED: CATHETER FLUSH 10 ML SYR IV PRN (14:30)
[2020-03-25 14:38] VITALS: BP 71/47
--- OUTSIDE RECORDS SUMMARY | 2020-03-25 14:49 | XMS REPORT | Continuity of Care Document ---
Author Organization Unknown Address Unknown Phone Unavailable Allergies Active Description Code Type Severity Reaction Onset Reported/Identified Relationship to Patient Clinical Status Yes No Known Drug Allergies [id number] Drug Allergy Unknown N/A 01/06/2020 Medications There [...] TEXT ENTRY 2 PRELIM RAPID ID AT [facility] 01/07/20 1 0:45 NRG FREE TEXT ENTRY 3 RML CONFIRMED ID 01/08/20 14:05 NRG Bacterial blood culture - 01/06/20 19:09 FREE TEXT EXTERNAL SEE OTHER CULTURE FOR SUSCEPTIB ILITY NRG QUANTITY OF GROWTH . NRG Bacterial blood culture SEE COMMEN NRG FREE TEXT ENTRY 2 PRELIM RAPID ID AT [facility] 01/08/20 8 :00 NRG FREE TEXT ENTRY [...] - 03/08/20 19:05 QUANTITY OF GROWTH . [facility] Bacterial blood culture SEE COMMEN NR Complete [...] culture - 03/08/20 19:20 Bacterial urine culture [id number] NRG COLONY COUNT <10,000 NRG FTX;REPORTABLE EXTENDED SPECTRUM BETA LACTAMSE NRG FREE TEXT ENTRY 2 PRODUCING STRAIN, RESISTANT TO NRG FREE TEXT ENTRY 3 PENICILLINS, CEPHALOSPORINS, T A ZTREONAM NRG FREE TEXT ENTRY 4 RESISTANT ORGANISM/CONTACT PRECA UTIONS NRG SUSCEPTIBILITY SUSCEPTIBILITY REPORTED 03/11/20 9:2 0 NRG RAPID ID PRELIM RAPID ID TEST AT [facility] 03/09 15:10 NRG ID CONFIRMATION IDENTIFIED BY [facility] NRG Dirithromycin susceptibility test by dis k [...] NRG CALL POSITIVES (F1 HELP) FAXED TO [facility] 03/09 8:[address] NRG RESULTS INDETERMINANT; [...] ) 39 mg/dL 7-18 Serum or plasma creatinine measurement (mass/volume) 3.43 mg/dL 0.60-1.30 Serum or plasma urea nitrogen/creatinine [...] pa johanna - 03/25/20 12:20 WRISTBAND NUMBER [id number] NRG ABO+Rh group OP NRG Blood group antibody screen NEGATIVE NR G Encounters ACCT No. Visit Date/Time Discharge Status Pt. Type Provider Facility Loc./Unit Complaint [id number] 03/08/2020 18:54:00 020 22:25:00 DIS Emergency REAGAN DONORBERT [facility] ER LETHARGY [id number] 01/06/2020 18:28:00 020 22:02:00 DIS Emergency DEILIA HARRELL, HESHAM Mooney [facility] ER [place] [id number] 03/25/2020 12:40:00 Document Registration
--- NOTE | 2020-03-25 15:00 | NUR ---
Pastoral care visit, provided prayer and support.
[2020-03-25] MEDS: morphine INJ 4 MG/ML 1 ML (VIAL/SYRINGE) IV PRN ×3 (15:02→20:02)
--- NOTE | 2020-03-25 20:50 | History & Physical-Hospitalist ---
History of Present Illness HPI/Chief Complaint CC: End of life care HPI: This is a 64yoWF clinic patient of [facility] who has been at [facility] for most of her care who was dependent on dialysis who presented to the ER with AMS and found to have epistaxis and hgb 5.2. Palliative care consult ensued in the ER and she was admitted for palliative care and placed on comfort care protocol. Comfort care orders have been initiated and her family members are at the bedside. I update them on the plan to focus on comfort and everyone agreed with the plan. Source: family, RN/MD Exam Limitations: clinical condition Date Seen 03/25/20 Time Seen by a Provider: 18:30 Attending Physician Opal Armendariz DO PCP No,Local Physician Referring Physician Date of Admission March 25, 2020 at 13:25 Home Medications & Allergies Home Medications Reviewed patient Home Medication Reconciliation performed by pharmacy medication reconciliations dialysis chief equipment technician and/or nursing. Patients Allergies have been reviewed. Allergies Allergies Coded Allergies No Known Drug Allergies (Unverified01/06/20) Past Vjofohh-Axssni-Tbgluu Hx Past Med/Social Hx: Reviewed Nursing Past Med/Soc Hx, Reviewed and Corrections made Patient Social History Marrital Status: Employed/Student: employed Alcohol Use: Denies Use Recreational Drug Use: No Smoking Status: Unknown if Ever Smoked 2nd Hand Smoke Exposure: No Recent Foreign Travel: No Contact w/other who traveled: No Recent Hopitalizations: Yes Recent Infectious Disease Expo: No Past Medical History Surgeries: Dialysis, Gallbladder, Hysterectomy Cardiac: High Cholesterol, Hypertension Hysterectomy Genitourinary: Renal Failure, Dialysis Gastrointestinal: Liver Disease/Jaundice, Esophageal Varices, Cirrhosis, Gall Bladder Disease Endocrine: Diabetes, Non-Insulin dep Psychosocial: Anxiety, Depression Family History Reviewed Nursing Family Hx Review of Systems Constitutional: see HPI Physical Exam Physical Exam Vital Signs Vital Signs - First Documented 03/25/20 03/25/20 12:12 13:50 Temp 35.1 Pulse 88 Resp 10 B/P (MAP) 71/47 Pulse Ox 98 O2 Delivery OxyMask O2 Flow Rate 5.00 Capillary Refill : Greater Than 3 Seconds Height, Weight, BMI Height: '" Weight: lbs. oz. kg; 31.96 BMI Method: General Appearance: No Apparent Distress, Chronically ill, Other (comatose) Results Results/Procedures Labs Laboratory Tests 03/25/20 12:20 Patient resulted labs reviewed. Assessment/Plan Admission Diagnosis Assessment: End of life ESRD Plan: Comfort care Admission Status: Inpatient Order (span 2 midnights) Reason for Inpatient Admission: palliative care Diagnosis/Problems Diagnosis/Problems (1) End stage renal disease on dialysis Status: Acute (2) Profound anemia Status: Acute Qualifiers: Anemia type: unspecified type Qualified Codes: D64.9 - Anemia, unspecified (3) Lactic acidosis Status: Acute Clinical Quality Measures DVT/VTE Risk/Contraindication: Risk Factor Score Per Nursin RFS Level Per Nursing on Admit: 2=Moderate OPAL ARMENDARIZ DO March 25, 2020 20:50
--- NOTE | 2020-03-25 21:05 | NUR ---
Patients family at bedside. With Tor DENSON, no signs of life are found.
[2020-03-25] MEDS ORDERED: CATHETER FLUSH 10 ML SYR IV SCH (22:00)
--- NOTE | 2020-03-25 22:01 | Discharge Summary ---
Discharge Summary Hospital Course Was the Problem List Reviewed?: Yes Problems/Dx: (1) End stage renal disease on dialysis Status: Acute (2) Profound anemia Status: Acute Qualifiers: Qualified Codes: D64.9 - Anemia, unspecified (3) Lactic acidosis Status: Acute Hospital Course Date of Admission: March 25, 2020 at 13:25 Admission Diagnosis : Family Physician/Provider: No,Local Physician Date of Discharge: 03/25/20 Discharge Diagnosis: end of life, ESRD Hospital Course: see HPI Labs and Pending Lab Test: Laboratory Tests 03/25/20 12:20: White Blood Count 8.3, Red Blood Count 1.42L, Hemoglobin 5.2*L, Hematocrit 17*L, Mean Corpuscular Volume 118H, Mean Corpuscular Hemoglobin 37H, Mean Corpuscular Hemoglobin Concent 31L, Red Cell Distribution Width 26.7H, Platelet Count 102L, Mean Platelet Volume 11.4H, Neutrophils (%) (Auto) 61, Lymphocytes (%) (Auto) 34, Monocytes (%) (Auto) 5, Eosinophils (%) (Auto) 1, Basophils (%) (Auto) 0, Neutrophils # (Auto) 5.0, Lymphocytes # (Auto) 2.8, Monocytes # (Auto) 0.4, Eosinophils # (Auto) 0.1, Basophils # (Auto) 0.0, Prothrombin Time 21.3H, INR Comment 1.8H, Activated Partial Thromboplast Time 39H, Sodium Level 127L, Potassium Level 4.3, Chloride Level 93L, Carbon Dioxide Level 18L, Anion Gap 16H , Blood Urea Nitrogen 39H, Creatinine 3.43H, Estimat Glomerular Filtration Rate 14, BUN/Creatinine Ratio 11, Glucose Level 125H, Lactic Acid Level 8.34*H, Calcium Level 7.9L, Corrected Calcium 9.6, Total Bilirubin 2.9H, Aspartate Amino Transf (AST/SGOT) 133H, Alanine Aminotransferase (ALT/SGPT) 54, Alkaline Phosphatase 227H, Troponin I 0.162H, Total Protein 5.0L, Albumin 1.9L Home Meds Active Reported Sertraline HCl 25 Mg Tablet Atorvastatin Calcium 20 Mg Tablet Sumatriptan Succinate 100 Mg Tablet Nadolol 40 Mg Tablet Losartan Potassium 50 Mg Tablet Sertraline HCl 50 Mg Tablet Omeprazole 20 Mg Capsule. Fluticasone Propionate 16 Gm Lamar.susp Assessment/Pt Instructions Discharge Planning: <30 minutes discharge planning Discharge Physical Examination Vital Signs Vital Signs Date Time Temp Pulse Resp B/P (MAP) Pulse Ox O2 Delivery O2 Flow Rate FiO2 03/25/20 14:38 34.7 88 10 71/47 88 Room Air 5.00 5.00 General Appearance: Other Allergies: Coded Allergies: No Known Drug Allergies (Unverified , 01/06/20) Discharge Summary Date of Admission March 25, 2020 at 13:25 Date of Discharge Admission Diagnosis Assessment: End of life ESRD Plan: Comfort care Comfort Measures/ End of Life Care: Comfort Measures Discharge Diagnosis (1) End stage renal disease on dialysis Status: Acute (2) Profound anemia Status: Acute Qualifiers: Qualified Codes: D64.9 - Anemia, unspecified (3) Lactic acidosis Status: Acute Clinical Quality Measures DVT/VTE Risk/Contraindication: Risk Factor Score Per Nursin RFS Level Per Nursing on Admit: 2=Moderate ABILIO RIBERA DO March 25, 2020 22:01
--- NOTE | 2020-03-25 22:33 | NUR ---
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
--- NOTE | 2020-03-26 10:51 | Physician Query Clarification ---
PQ-Further Specificity Admission/Discharge Admission Date: March 25, 2020 at 13:25 Discharge Date: March 25, 2020 at 22:33 The medical record reflects the following clinical scenario: History/Risk Factors: HTN w/ ESRD, cirrhosis, HASSAN,esophageal varices Clinical Findings: blood in stools, vomiting blood, HgbHct 5.2/17, Lactic acid 8.34 Treatment: Transfused 2U, comfort care Question: Can you further specify the primary condition responsible for inpatient admission after study per the clinical indicators above? Please document a response in the Progress Notes or Discharge Summary. 1. hematemesis and melena 2. profound anemia d/t acute blood loss and anemia of ESRD 3. ESRD 4. Other, with explanation of the clinical findings. 5. Clinically undetermined, no explanation for the clinical findings. PHYSICIAN RESPONSE Can you specify per above: 1 Please remember a lack of response to the above will prompt a phone page by CDI/Coding staff. In responding to this query, please exercise your independent professional judgment. The purpose of this communication is to more accurately reflect the complexity of your patients condition. The fact that a question is asked does not imply that any particular answer is desired or expected. Thank you for your timely response to this clarification. Requestors name: Fox THIS PHYSICIAN QUERY FORM IS A PERMANENT PART OF THE MEDICAL RECORD FOX BERNARD March 26, 2020 10:51 ABILIO RIBERA DO March 26, 2020 12:19
== END 2020-03-25 22:33 | disposition expired | DRG 377 ==
LOC: EDUNIT# 12:12 → ER 12:13 → 4TH 13:25
PROVIDERS: ADMIT Internal Medicine; ATTEND Internal Medicine
DX: K92.0 Hematemesis (principal); K92.1 Melena; I12.0 Hypertensive chronic kidney disease with stage 5 chronic kidney disease or end stage renal disease; N18.6 End stage renal disease; E87.2 Acidosis; I85.10 Secondary esophageal varices without bleeding; D64.9 Anemia, unspecified; Z99.2 Dependence on renal dialysis; Z66 Do not resuscitate; Z51.5 Encounter for palliative care; K72.90 Hepatic failure, unspecified without coma; K75.81 Nonalcoholic steatohepatitis (NASH); K74.60 Unspecified cirrhosis of liver; E78.00 Pure hypercholesterolemia, unspecified; E11.9 Type 2 diabetes mellitus without complications; F41.9 Anxiety disorder, unspecified; F32.9 Major depressive disorder, single episode, unspecified; Z90.710 Acquired absence of both cervix and uterus
CPT/HCPCS: 36415; 80053; 83605; 84484; 85025; 85610; 85730; 86850; 86900; 86901; 86920; 87040; 96374